=== PATIENT | female | born 1985 | race Caucasian/White ===

== ENCOUNTER 2017-08-27 12:13 | Emergency (ER) | payer BC, SELFPAY ==
[2017-08-27 12:14] VITALS: BP 121/72; PULSE 63; RESP 18; TEMP 36.6; O2SAT 100; BMI 21.4
--- NOTE | 2017-08-27 12:41 | CT_ITS ---
STUDY: CT BRAIN WITHOUT CONTRAST REASON FOR EXAM: Female, 32 years old. Trauma RADIATION DOSAGE (If Supplied By Facility): CTDIvol = ( 44.99 ) mGy, DLP = ( 745.49 ) mGycm TECHNIQUE: Transaxial CT imaging of the brain was performed without administration of intravenous contrast material. Sagittal and coronal reconstructed images are provided and reviewed. Individualized dose optimization techniques were used for this CT. COMPARISON: None. FINDINGS: Normal soft tissue structures. Normal calvarium. Normal size ventricles and extra-axial spaces for the patient's age. Normal white matter tracts of the cerebral hemispheres. Normal basal ganglia and thalami. Normal brainstem. Normal cerebellum. There is no intracranial hemorrhage. There are no findings of an acute ischemic infarction. Normal visualized paranasal sinuses. CT/Brain/Head without Contrast IMPRESSION: Normal unenhanced CT scan of the brain. Electronically Signed: Jonah Mcintyre DO at 13:24 EDT Tel , Service support ,
--- NOTE | 2017-08-27 12:45 | ED.DCSUM_ITS ---
- ER Visit Summary Date of Service: 08/27/17 Chief Complaint: Headache History of Present Illness: The patient is a 32 F with a headache for 2 days. This is a right sided headache. The patient says it is worse after a fall. She has felt off balance for about a week. She denies any vertigo symptoms. She denies any hearing changes. Denies any new medications. Denies fevers. Denies weakness or numbness. Denies visual or speech change. Denies trouble swallowing. Denies chest pain or shortness of breath. Denies abdominal pain. She does report nausea without vomiting. No diarrhea or symptoms. She is on her period now. Physical Examination: Vital signs unremarkable. Afebrile. No acute distress. Head atraumatic. Neck nontender. Cranial nerves grossly intact. HEENT exam unremarkable. Heart regular. Lungs clear. Extremities atraumatic. Normal strength, sensation, and cerebellar testing. Skin appears normal. Test Results: CT brain pending. Emergency Department Course and Treatment: Patient declined pain medications. CT head showed no acute abnormalities. On reassessment, the patient was feeling better. She was worried that she had an abnormal scan because of her history of IV drug abuse. She denies any history of hepatitis, bleeding, or HIV. Denies any other complaints. I advised her that further workup to rule out aneurysm or hemorrhage would require further imaging and/or even a lumbar puncture. The patient declined any further testing or workup. She voiced understanding. She will monitor for signs of infection like fever, rash, or neck stiffness. Will also monitor for increasing pain, photophobia, vomiting, weakness or numbness. Return for any new or worsening issues. Otherwise follow -up as an outpatient. Treatment Plan: As above Disposition: Discharged Impression: 1. Acute headache This note was generated with [employer] dictation software. It may contain incorrect words, spelling, and punctuation that were not noted in review of the chart prior to signing ED Disposition - Plan for ED Patient: Chief Complaint: Head Injury Referrals: Sherie Roland DO [Primary Care Provider] -
--- NOTE | 2017-08-27 15:10 | ED.DEP ---
ED Disposition - Plan for ED Patient: Chief Complaint: Head Injury Instructions: ED Head Injury Closed Referrals: Sherie Roland DO [Primary Care Provider] -
[2017-08-27 15:12] VITALS: BP 104/75; PULSE 65; RESP 16
== END 2017-08-27 15:14 | disposition home or self-care (01) ==
PROVIDERS: Emergency Provider Emergency Medicine; Family Provider Family Medicine; PCP Family Medicine
DX: R51 Headache (principal)
CPT/HCPCS: 70450; 99282

== ENCOUNTER → 2017-10-31 13:34 | Outpatient (CLI) | payer BC, SELFPAY ==
[2017-10-31 16:30] LABS: Follicle Stimulating Hormone 6.7 mIU/mL; Free T3 2.8 pg/mL (2.18-3.98); Prolactin 18.3 ng/mL; T4 Free Direct 0.91 ng/dL (0.76-1.46); Thyroid Stim Hormone (TSH) 1.61 uIU/mL (0.358-3.74)
[2017-11-13 13:25] LABS: HPV Reflexed? NOT INDICATED
== END ==
LOC: BFHLAB 13:35
PROVIDERS: Family Provider Family Medicine; PCP Family Medicine; Visit Provider Family Medicine
DX: E03.9 Hypothyroidism, unspecified (principal); N92.6 Irregular menstruation, unspecified; R87.810 Cervical high risk human papillomavirus (HPV) DNA test positive
CPT/HCPCS: 36415; 83001; 84146; 84439; 84443; 84481; 88175; G0145

== ENCOUNTER 2018-06-06 18:49 | Emergency (ER) | payer SELFPAY ==
[2018-06-06 18:50] VITALS: BP 119/75; PULSE 66; RESP 14; TEMP 36.8; O2SAT 100; BMI 19.9
--- NOTE | 2018-06-06 19:05 | CT_ITS ---
STUDY: CT BRAIN WITHOUT CONTRAST REASON FOR EXAM: Female, 33 years old. Headache. Patient woke up this morning with left facial numbness RADIATION DOSAGE (If Supplied By Facility): CTDIvol = ( 44.99 ) mGy, DLP = ( 745.49 ) mGycm TECHNIQUE: Transaxial CT imaging of the brain was performed without administration of intravenous contrast material. Individualized dose optimization techniques were used for this CT. COMPARISON: 08/27/2017 FINDINGS: Normal soft tissue structures. Normal calvarium. Normal size ventricles and extra-axial spaces for the patient's age. Normal white matter tracts of the cerebral hemispheres. Normal basal ganglia and thalami. Normal brainstem. Normal cerebellum. There is no intracranial hemorrhage. There are no findings of an acute ischemic infarction. There is mucoperiosteal inflammatory disease of the ethmoid sinuses consistent with mild chronic sinusitis. CT/Brain/Head without Contrast IMPRESSION: Normal unenhanced CT scan of the brain. Electronically Signed: Reggie Gray MD at 19:39 EST , Service support ,
--- NOTE | 2018-06-06 19:53 | ED.DCSUM_ITS ---
- ER Visit Summary Date of Service: 06/06/18 Chief Complaint: Facial weakness History of Present Illness: The patient is a 33 F who presents with left facial weakness that began this morning. Patient states when she attempted to put her lip croissant she was having difficulty puckering her lips. Patient states she was able to do it but it is slower on the left than on the right. Patient does admit to some paresthesias on the left side of her face. Patient denies any weakness of her upper or lower extremities. Patient does admit to some left ear pain. Patient admits to subjective fevers. Patient denies any headaches. Physical Examination: Vital signs are stable. Patient is afebrile. Patient is in no acute distress. Oral mucosa is pink and moist. Neck is supple. Trachea is midline. There is no JVD noted. Heart was regular rate and rhythm. Lungs are clear and equal bilateral. Abdomen is soft. Bowel sounds are normal. There is no tenderness. There is no guarding noted. Skin is warm dry. Cranial nerves II through XII are intact. I do not appreciate any weakness on the left side of her face. There are no focal motor or sensory deficits noted. The remaining physical exam is within normal limits. Test Results: CT scan of the brain was obtained. There is no acute intracranial abnormality. Emergency Department Course and Treatment: Patient will be treated as a early Almazan's palsy. Patient was given a prescription for a short course of prednisone. However the patient declined a prescription. Patient was instructed to follow-up with her primary care physician in 5-7 days. Patient understood and was agreeable with the plan. All questions were answered. Disposition: Discharge home Impression: Early Almazan's palsy This note was generated with [employer] dictation software. It may contain incorrect words, spelling, and punctuation that were not noted in review of the chart prior to signing ED Disposition - Plan for ED Patient: Disposition: Home or Assisted Living Chief Complaint: Numb/Ting Diagnosis: Almazan's palsy Instructions: ED [place] Palsy Prescriptions: predniSONE tablet 60 mg PO DAILY 5 Days #15 tab Referrals: Sherie Roland DO [Primary Care Provider] -
== END 2018-06-06 20:01 | disposition home or self-care (01) ==
PROVIDERS: Emergency Provider Emergency Medicine; Family Provider Family Medicine; PCP Family Medicine
DX: G51.0 Bell's palsy (principal)
CPT/HCPCS: 70450; 99282

== ENCOUNTER 2020-10-20 15:37 | Emergency (ER) | payer OTHER, SELFPAY ==
[2020-10-20 15:38] VITALS: BP 124/73; PULSE 89; RESP 16; TEMP 36.4; O2SAT 98; BMI 23.6
--- NOTE | 2020-10-20 15:58 | US_ITS ---
STUDY: SECOND AND THIRD TRIMESTER OBSTETRICAL ULTRASOUND - TWIN REASON FOR EXAM: Female, 35 years old. LMP: 06/08/2020. Left lower quadrant pain. Confirm viability. TECHNIQUE: Transabdominal TECHNICAL QUALITY: Adequate. COMPARISON: None. FINDINGS: There are two intrauterine fetuses. Two discrete placenta common consistent with a dichorionic . The placenta for baby A is anterior and grade 1 appearance. The placenta for baby B is low-lying with its 1.2 cm cervix. It is also grade 1. There is a normal amniotic fluid volume within each amniotic sac. The uterine wall is normal. There is a competent closed cervical os. The cervix measures 4.3 cm in length. Fetus A demonstrates cardiac activity with a heart rate of 169 bpm. Fetus B demonstrates cardiac activity with a heart rate of 185 bpm. Fetus B is in an oblique presentation with the head on the maternal right side. FETUS A BIOMETRY: BPD: 4.37 cm: 19 weeks, 1 days HC: 16.29 cm: 19 weeks, 0 days AC: 14.15 cm: 19 weeks, 3 days FL: 2.74 cm: 18 weeks, 2 days CI: FL/BPD: 62.72 FL/HC: FL/AC: 19.37 HC/AC: 1.15 age by current US: 18 weeks, 6 days. BREONNA by current US: 03/17/2021. Estimated weight: 271 grams, +/- 41 grams, 39 %. Age by LMP: 19 weeks, 1 days. BREONNA by LMP: 03/15/2021. FETUS B BIOMETRY: BPD: 4.24 cm: 18 weeks, 5 days HC: 16.61 cm: 20 weeks, 2 days AC: 12.97 cm: 18 weeks, 3 days FL: 2.73 cm: 18 weeks, 2 days CI: FL/BPD: 64.26 FL/HC: FL/AC: 21.01 HC/AC: 1.23 age by current US: 18 weeks, 4 days. BREONNA by current US: 03/19/2021. Estimated weight: 242 grams, +/- 36 grams, 15 %. Age by LMP: 19 weeks, 1 days. BREONNA by LMP: 03/15/2021. IMPRESSION: 1. Live dichorionic intrauterine twin . 2. Fetus a demonstrates a gestational age of 18 weeks, 6 days with an BREONNA of 03/17/2021. EFW is 271 g. Adequate amniotic fluid. Anterior grade 1 placenta. Breech presentation. 3. Fetus B demonstrates a gestational age of 18 weeks, 4 days with an BREONNA of 03/19/2021. EFW is 242 g. Adequate amniotic fluid. Posterior low-lying grade 1 placenta. Transverse lie with head to the maternal right Electronically Signed: Bruce Valdes DO at 17:38 EDT Tel [phone], Service support , STUDY: SECOND AND THIRD TRIMESTER OBSTETRICAL ULTRASOUND - TWIN REASON FOR EXAM: Female, 35 years old. LMP: 06/08/2020. Left lower quadrant pain. Confirm viability. TECHNIQUE: Transabdominal TECHNICAL QUALITY: Adequate. COMPARISON: None. FINDINGS: There are two intrauterine fetuses. Two discrete placenta common consistent with a dichorionic . The placenta for baby A is anterior and grade 1 appearance. The placenta for baby B is low-lying with its 1.2 cm cervix. It is also grade 1. There is a normal amniotic fluid volume within each amniotic sac. The uterine wall is normal. There is a competent closed cervical os. The cervix measures 4.3 cm in length. The bilateral adnexal regions are normal. Fetus A demonstrates cardiac activity with a heart rate of 169 bpm. Fetus ?A? is in a cephalic presentation. Fetus B demonstrates cardiac activity with a heart rate of 185 bpm. Fetus B is in an oblique presentation with the head on the maternal right side. FETUS A BIOMETRY: BPD: 4.37 cm: 19 weeks, 1 days HC: 16.29 cm: 19 weeks, 0 days AC: 14.15 cm: 19 weeks, 3 days FL: 2.74 cm: 18 weeks, 2 days CI: FL/BPD: 62.72 FL/HC: FL/AC: 19.37 HC/AC: 1.15 age by current US: 18 weeks, 6 days. BREONNA by current US: 03/17/2021. Estimated weight: 271 grams, +/- 41 grams, 39 %. Age by LMP: 19 weeks, 1 days. BREONNA by LMP: 03/15/2021. FETUS B BIOMETRY: BPD: 4.24 cm: 18 weeks, 5 days HC: 16.61 cm: 20 weeks, 2 days AC: 12.97 cm: 18 weeks, 3 days FL: 2.73 cm: 18 weeks, 2 days CI: FL/BPD: 64.26 FL/HC: FL/AC: 21.01 HC/AC: 1.23 age by current US: 18 weeks, 4 days. BREONNA by current US: 03/19/2021. Estimated weight: 242 grams, +/- 36 grams, 15 %. Age by LMP: 19 weeks, 1 days. BREONNA by LMP: 03/15/2021. US/OB Limited With Biometrics IMPRESSION: 1. Live dichorionic intrauterine twin . 2. Fetus a demonstrates a gestational age of 18 weeks, 6 days with an BREONNA of 03/17/2021. EFW is 271 g. Adequate amniotic fluid. Anterior grade 1 placenta. Breech presentation. 3. Fetus B demonstrates a gestational age of 18 weeks, 4 days with an BREONNA of 03/19/2021. EFW is 242 g. Adequate amniotic fluid. Posterior low-lying grade 1 placenta. Transverse lie with head to the maternal right Electronically Signed: Bruce Valdes DO at 17:38 EDT Tel [phone], Service support ,
--- NOTE | 2020-10-20 15:59 | EDS_ITS ---
HPI HPI - Female History of Present Illness Chief Complaint: Complaint Narrative Narrative: 34-year-old female with 3 previous pregnancies currently at 17 weeks gestation with twins. She has had confirmatory intrauterine . She sees her compensation coordinator. Patient states that she has had urinary symptoms. She does describe some urinary incontinence when she sneezes. Patient states that she has not experienced this with previous pregnancies. Patient denies fever, chills. She is eating and drinking normally. She making normal stool. She states that she has not felt the twins move since yesterday. PFSH PFSH Home Medications 10/20/20 [History Last Taken Unknown] Allergy/AdvReac Type Severity Reaction Status Date / Time acetaminophen Allergy Rash Verified 10/20/20 15:40 [From Tylenol-Codeine] codeine phosphate Allergy Rash Verified 10/20/20 15:40 [From Tylenol-Codeine] fentanyl AdvReac Other Verified 10/20/20 15:40 morphine AdvReac Rash Verified 10/20/20 15:40 propofol AdvReac Other Verified 10/20/20 15:40 Surgical History Hx of appendectomy Social History Smoking Status: Former smoker ROS ROS ED Constitutional Constitutional ED: Denies chills, fever(s) or sweats Eyes Eyes: Denies blurry vision or change in vision ENT ENT ED: Denies ear pain, rhinorrhea or sore throat Cardiovascular Cardiovascular: Denies chest pain, palpitations or racing heartbeat Respiratory/Chest Respiratory/Chest: Denies cough, dyspnea or sputum Gastrointestinal Gastrointestinal: Denies abdominal pain, constipation, diarrhea or vomiting Genitourinary Genitourinary ED: Reports dysuria and other Details: Mild suprapubic pressure, urinary incontinence. ; Denies hematuria or urinary frequency Musculoskeletal Musculoskeletal: Denies arthralgias, myalgias or neck pain Integumentary Denies abscess, Abrasions or rash Neurologic Neurologic: Denies headache(s), paresthesias or weakness Psychiatric Psychiatric: Denies anxiety, depression, suicidal ideation or suicidal thoughts Endocrine Endocrinology: Denies polydipsia or polyuria EXAM Physical Exam Const Vital Signs: 10/20/20 15:38 Temperature 97.5 F L Temperature Source Temporal Pulse Rate 89 Respiratory Rate 16 Blood Pressure 124/73 H Blood Pressure Mean 90 Pulse Ox 98 Oxygen Delivery Method Room Air General Appearance ED: Negative for pallor HEENT Reports normocephalic, head/scalp atraumatic and moist mucous membranes Eyes PERRL and EOMs intact bilaterally Chest Wall inspection of chest normal and palpation of chest normal Resp normal respiratory effort and clear to auscultation bilaterally Auscultation: Negative for rales, rhonchi or wheezes Cardio regular rate and regular rhythm GI normal to inspection, nondistended, normoactive bowel sounds and non-distended GI Narrative: Gravid. Mild suprapubic tenderness. Palpation: soft Narrative: Deferred Back/Spine no CVA tenderness General Back: Negative for CVA tenderness Cervical Spine: Negative for cervical spine tenderness Extremity normal to inspection General Extremety ED: Yes edema and tenderness General Extremity: edema Neuro oriented x3 and CN's II-XII intact bilaterally Sensorium / Orientation: alert Motor Exam: strength 5/5 throughout Psych mental status grossly normal Attitude: No agitated Skin no rashes or lesions noted and no wounds General Skin Exam: Negative for jaundice or pallor MDM MDM MDM Narrative Medical decision making narrative: Patient presents with mild pelvic pain concern for decreased movement and dysuria. She is also describing incontinence to me. Patient had lab work today which is unremarkable. Urinalysis is negative for infection. hCG is appropriate. She had transvaginal ultrasound which showed both fetuses to be appropriate with normal heart rates. Patient counseled follow-up with her DIRECTOR OF CASEWORK DEPARTMENT. I believe she stable for discharge at this time. Impression: 1. Abdominal pain in second trimester 2. Dysuria 3. Incontinence Lab Data Labs: Laboratory Results - last 24 hr 10/20/20 10/20/20 10/20/20 15:50 16:15 16:15 WBC 8.7 RBC 3.36 L Hgb 10.8 L Hct 32.0 L MCV 95.2 MCH 32.1 H MCHC 33.8 RDW Std Deviation 45.1 H RDW Coeff of Grayson 13.1 Plt Count 267 MPV 8.9 Immature Gran % (Auto) 0.600 Neut % (Auto) 81.6 H Lymph % (Auto) 9.4 L Ulster % (Auto) 6.5 Eos % (Auto) 1.7 Baso % (Auto) 0.2 Absolute Neuts (auto) 7.1 Absolute Lymphs (auto) 0.82 L Nucleated RBC % 0 Sodium 137 Potassium 3.3 L Chloride 107 Carbon Dioxide 23.0 Anion Gap 7 BUN 7 Creatinine 0.62 Estim Creat Clear Calc 111.45 Est GFR (MDRD) Af Amer 142 Est GFR (MDRD) Non-Af 117 BUN/Creatinine Ratio 11.3 Glucose 100 Calcium 8.3 L HCG, Quant Urine Color Yellow Urine Clarity Clear Urine pH 5.0 Ur Specific Happy 1.025 Urine Protein 15 H Urine Glucose (UA) Normal Urine Ketones Negative Urine Occult Blood Negative Urine Nitrite Negative Urine Bilirubin Negative Urine Urobilinogen Normal Ur Leukocyte Esterase Negative Urine RBC 0 SEEN Urine WBC 0 SEEN Ur Squamous Epith Cells 0-5 SEEN Urine Bacteria 0 SEEN Urine Mucus 0 SEEN 10/20/20 16:15 WBC RBC Hgb Hct MCV MCH MCHC RDW Std Deviation RDW Coeff of Grayson Plt Count MPV Immature Gran % (Auto) Neut % (Auto) Lymph % (Auto) Ulster % (Auto) Eos % (Auto) Baso % (Auto) Absolute Neuts (auto) Absolute Lymphs (auto) Nucleated RBC % Sodium Potassium Chloride Carbon Dioxide Anion Gap BUN Creatinine Estim Creat Clear Calc Est GFR (MDRD) Af Amer Est GFR (MDRD) Non-Af BUN/Creatinine Ratio Glucose Calcium HCG, Quant 43742 H Urine Color Urine Clarity Urine pH Ur Specific Happy Urine Protein Urine Glucose (UA) Urine Ketones Urine Occult Blood Urine Nitrite Urine Bilirubin Urine Urobilinogen Ur Leukocyte Esterase Urine RBC Urine WBC Ur Squamous Epith Cells Urine Bacteria Urine Mucus Radiography Diagnostic Testing: Radiology Impression Obstetrics Ultrasound 10/20/20 15:58 IMPRESSION: 1. Live dichorionic intrauterine twin . 2. Fetus a demonstrates a gestational age of 18 weeks, 6 days with an BREONNA of 03/17/2021. EFW is 271 g. Adequate amniotic fluid. Anterior grade 1 placenta. Breech presentation. 3. Fetus B demonstrates a gestational age of 18 weeks, 4 days with an BREONNA of 03/19/2021. EFW is 242 g. Adequate amniotic fluid. Posterior low-lying grade 1 placenta. Transverse lie with head to the maternal right Electronically Signed: Bruce Valdes DO at 17:38 EDT Tel [phone], Service support , ADDENDUM: 10/20/20 1745 IMPRESSION: 1. Live dichorionic intrauterine twin . 2. Fetus a demonstrates a gestational age of 18 weeks, 6 days with an BREONNA of 03/17/2021. EFW is 271 g. Adequate amniotic fluid. Anterior grade 1 placenta. Breech presentation. 3. Fetus B demonstrates a gestational age of 18 weeks, 4 days with an BREONNA of 03/19/2021. EFW is 242 g. Adequate amniotic fluid. Posterior low-lying grade 1 placenta. Transverse lie with head to the maternal right Electronically Signed: Bruce Valdes DO at 17:38 EDT Tel [phone], Service support , Discharge Plan Triage Chief Complaint: Complaint ED Provider: Derek Burnett Dx/Rx/DC Orders Instructions: Adapting to : Second Trimester Prescriptions: No Action RF: 0 Primary Care Provider: Sherie Roland Referrals: Sherie Roland DO [Primary Care Provider] - Disposition Disposition: Home, self care
[2020-10-20 16:22] LABS: Absolute Lymphocyte Count 0.82 X10^3/uL (0.83-4.51); Absolute Neutrophil Count 7.1 X10^3/uL (2.0-7.7); Basophil# 0.02 X10^3/uL; Basophil% 0.2 % (0-1); Eosinophil# 0.15 X10^3/uL; Eosinophils% 1.7 % (0-5); Hemoglobin 10.8 g/dL (12.0-15.0); Lymphocyte # 0.82 X10^3/ul (0.83-4.51); Lymphocyte % 9.4 % (19-41); Mean Corp Hgb Conc 33.8 g/dL (32-36); Mean Corpuscular Hgb 32.1 pg (27.0-32.0); Mean Corpuscular Volume 95.2 fL (81-99); Mean Platelet Vol. 8.9 fl (6.2-12.0); Monocyte# 0.57 X10^3/uL; Monocyte% 6.5 % (0-10); NRBC Flagged by Analyzer 0 % (0-5); Neutrophil # 7.12 X10^3/uL (2.7-7.7); Neutrophil % 81.6 % (47-70); Platelet Count 267 K/mm3 (150-450); RBC Distribution Width CV 13.1 % (11.6-14.6); RBC Distribution Width SD 45.1 fl (35.1-43.9); Red Blood Count 3.36 M/mm3 (4.2-5.4); White Blood Count 8.7 K/mm3 (4.4-11.0)
[2020-10-20 16:29] LABS: Bacteria 0 SEEN /hpf (None Seen); Mucous, Urine 0 SEEN /hpf (<or=2+); Red Blood Cells-Urine 0 SEEN /hpf (0-5); White Blood Cells 0 SEEN /hpf (0-5)
[2020-10-20 16:31] LABS: Color, Urine Yellow (Yellow); Glucose, Dipstick Normal (Normal); Ketone-Dipstick Negative (Negative); Leukocyte Esterase-Dipstick Negative /ul (Negative); Nitrite-Dipstick Negative (Negative); Occult Blood-Urine Negative /ul (Negative); Protein-Dipstick 15 mg/dl (Negative); Specific Gravity, Urine 1.025 (1.002-1.030); Urine Bilirubin Dipstick Negative (Negative); Urine Clarity Clear (Clear); Urine Urobilinogen Normal (Normal)
[2020-10-20 16:35] LABS: Anion Gap 7 (5-15); BUN 7 mg/dL (7-18); BUN/Creat Ratio 11.3 RATIO (10-20); Calcium,Total 8.3 mg/dL (8.5-10.1); Chloride 107 mmol/L (98-107); Creatinine, Serum 0.62 mg/dL (0.55-1.02); EST Glomerular Filtration Rate 117 mL/min (>60); Est Glom Filt Rate - Afr Amer 142 mL/min (>60); Estimated Creatinine Clearance 111.45 ml/min; Glucose 100 mg/dL (74-106); Potassium 3.3 mmol/L (3.5-5.1); Sodium Level 137 mmol/L (136-145)
[2020-10-20 16:41] LABS: Squamous Epithelial Cells - UA 0-5 SEEN /hpf (5-10)
[2020-10-20 17:00] LABS: hCG Titer Quant., Serum 12595 mIU/mL (1-3)
== END 2020-10-20 18:24 | disposition home or self-care (01) ==
PROVIDERS: Emergency Provider Student in an Organized Health Care Education/Training Program; PCP Family Medicine
DX: O26.892 Other specified pregnancy related conditions, second trimester (principal); R10.9 Unspecified abdominal pain; R30.0 Dysuria; R32 Unspecified urinary incontinence; Z3A.17 17 weeks gestation of pregnancy; Z87.891 Personal history of nicotine dependence
CPT/HCPCS: 76816; 80048; 81001; 84702; 85025; 99282; A4216

== ENCOUNTER 2021-01-29 03:40 | Inpatient (IN) | payer OTHER, SELFPAY ==
[2021-01-29] VITALS (18 sets, daily range): BP systolic 101–132; BP diastolic 64–80; PULSE 64–97; RESP 16–18; TEMP 36.1–36.8; O2SAT 97–100; BMI 25.0
[2021-01-29] MEDS: Lactated Ringers 1,000 ML 999 ML IV (03:40)
[2021-01-29] MEDS: Betamethasone/Betamethasone 30 MG/5 ML Vial 12 MG IM (04:07)
--- NOTE | 2021-01-29 04:11 | HP.PCM.OB_ITS ---
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 Denies headache, visual change, chest pain, shortness of breath, nausea vomiting, right upper quadrant pain. Patient states good movement. Obstetric history: G1-4: term 's, uncomplicated. Baby is healthy at home G5: Current Past medical history: None Locations: None Past surgical history: Appendectomy, left finger surgery Allergies: Morphine (headache) Social history: Denies smoking, alcohol use, drug use Family history: Denies DVT or PE Review of systems: Besides above pertinent positives a full review of systems was performed and found to be negative Physical exam: Vitals: Blood pressure 124/80 pulse 73 temp 97.6 General: Normal-appearing no acute distress HEENT: Normocephalic atraumatic no cervical of adenopathy Cardiac/respiratory: No use of accessory muscles nonlabored breathing Abdomen: Gravid Pelvic: Bedside ultrasound with twin unknown chronicity. Positions baby A oblique maternal right, baby B transverse maternal left Extremities: No peripheral edema normal peripheral pulses Psych: Normal affect normal demeanor nonpressured speech Labs: White blood cell 8.8 hemoglobin 11.3 hematocrit 34.7% platelets 316 Assessment plan: 35-year-old G5, P4 based on history and bedside ultrasound appears to be 33 wee ks and 4 days with twins of unknown chorionicity in labor with unstable lie's and transverse presentation of baby B. Educated patient on findings for primary section for unstable lie and transverse lie. Risk benefits alternatives discussed. Patient states understanding wish to proceed. Give Celestone now. Labs sent. Anesthesia to see. now
[2021-01-29 04:14] LABS: Absolute Lymphocyte Count 1.18 X10^3/uL (0.83-4.51); Absolute Neutrophil Count 6.8 X10^3/uL (2.0-7.7); Basophil# 0.01 X10^3/uL; Basophil% 0.1 % (0-1); Eosinophil# 0.14 X10^3/uL; Eosinophils% 1.6 % (0-5); Hematocrit 34.7 % (37-47); Hemoglobin 11.3 g/dL (12.0-15.0); Lymphocyte # 1.18 X10^3/ul (0.83-4.51); Lymphocyte % 13.5 % (19-41); Mean Corp Hgb Conc 32.6 g/dL (32-36); Mean Corpuscular Hgb 28.5 pg (27.0-32.0); Mean Corpuscular Volume 87.4 fL (81-99); Mean Platelet Vol. 9.4 fl (6.2-12.0); Monocyte# 0.53 X10^3/uL; Monocyte% 6.1 % (0-10); NRBC Flagged by Analyzer 0 % (0-5); Neutrophil # 6.83 X10^3/uL (2.7-7.7); Platelet Count 316 K/mm3 (150-450); RBC Distribution Width CV 13.9 % (11.6-14.6); RBC Distribution Width SD 43.9 fl (35.1-43.9); Red Blood Count 3.97 M/mm3 (4.2-5.4); White Blood Count 8.8 K/mm3 (4.4-11.0)
[2021-01-29] MEDS: Sodium Citrate/Citric Acid 30 ML UDC PO (04:25)
[2021-01-29] MEDS: Cefazolin 2 GM in 0.9% Normal Saline 100 ML IV (04:30)
[2021-01-29 05:25] LABS: Group B Strep DNA By PCR POSITIVE (Negative); Probe Check PASS
--- NOTE | 2021-01-29 05:43 | EX.PCM.OBRPT ---
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 Baby B transverse spine down head maternal left delivered in standard breech, Apgars per apparel stock checker. Normal uterus, tubes, and ovaries. Consent: Patient arrived to [facility] after being seen by display mechanic per patient to be 33 weeks and 4 days based on early ultrasound arrived in labor baby A and oblique/transverse presentation and baby B in transverse presentation in need of primary section. Patient understands the risk of the procedure include but are not limited to visceral or vascular injury, prolonged hospitalization, blood loss and need for transfusion, reoperation. Patient stated understanding and wished to proceed. All questions were answered and consent was signed. Procedure: Patient was brought back to the OR where spinal anesthesia found to be adequate. 2 g of Ancef and 500 mg of azithromycin were given for infection prophylaxis. Patient was prepared and draped in a supine position with leftward tilt. A Pfannenstiel incision was made at the skin with a scalpel. The incision was carried down to the fascia with a scalpel. The fascia was excised and extended laterally. Inferior aspect of the fascia was grasped and rectus and pyramidalis muscle were dissected off sharply with Nguyen scissors. In a similar aspect the superior aspect of the fascia was grasped and the underlying rectus muscle was dissected off sharply. Rectus muscle was dissected at the midline down to the level of the pubic symphysis. Preperitoneal fatty tissue was noted and peritoneum was entered bluntly. Peritoneum was extended superiorly and inferiorly with good visualization of bladder. Bladder blade was inserted and vesicouterine peritoneum was identified. Low transverse hysterotomy was made. Anterior placenta was noted, Allis clamp used to rupture membranes clear fluid noted x2. Hand was placed into the hysterotomy baby A was delivered in standard cephalic fashion with bladder blade being removed and baby A was delivered through the hysterotomy cephalic. Baby B with palpation of transverse head maternal left spine up, Allis clamp used to rupture membranes clear fluid noted. Baby B was delivered in standard breech fashion. Each placenta was marked, placenta was delivered via cord traction and fundal massage. IV oxytocin was initiated to facilitate uterine contractions. Uterus was exteriorized and wiped out with a dry laparotomy sponge in order to remove remaining placental membranes. Uterus was closed in continuous running fashion. Second layer was performed. Good hemostasis was noted. Uterus was placed back in the abdominal cavity and reinspected. Good hemostasis was noted. Rectus muscle and peritoneum were reapproximated with horizontal mattress sutures. Fascia was closed in a continuous running fashion. Skin was closed in a subcuticular fashion. All counts correct x2. Patient tolerated the procedure well was brought to recovery in stable condition.
[2021-01-29 05:55] LABS: HIV - WCH Non-Reactive (Nonreactive); Hepatitis B Surface Antigen Non-Reactive (Nonreactive); Hepatitis C Antibody Non-Reactive (Nonreactive)
[2021-01-29] MEDS: Oxytocin 30 units/NS 500 ml 30 UNITS/500 ML IV.SOLN 167 UNITS IV (06:18)
[2021-01-29] MEDS: Acetaminophen 500 MG Tablet 1000 MG PO ×3 (06:31→18:41)
[2021-01-29] MEDS: HYDROmorphone 1 MG/ML Syringe IV ×6 (06:42→21:10)
[2021-01-29 08:32] LABS: Amphetamine Urine VISTA NEGATIVE (<1000 ng/mL); Barbiturate Urine VISTA NEGATIVE (< 200 ng/mL); Benzodiazepine Urine VISTA NEGATIVE (< 200 ng/mL); Cocaine Urine VISTA NEGATIVE (< 300 ng/mL); Ecstacy Urine VISTA NEGATIVE (< 500 ng/mL); Methadone Urine VISTA NEGATIVE (< 300 ng/mL); PCP Urine VISTA NEGATIVE (< 25 ng/mL); THC Urine VISTA NEGATIVE (< 50 ng/mL); Vista UDS pH Range 7
--- NOTE | 2021-01-29 09:22 | NURSING ---
Complaining of pain 10 on 0-10 scale. Stating I just had a c section and you guys are withholding pain medicine and treating me like a drug addict. Offered Toradol, patient refusing, offered oxy ir, patient refusing. Dr. Lobo Juarez's office called and message left with nurse with this information and to have Dr. Juarez call this nurse.
[2021-01-29 09:55] LABS: Rubella IgG Reactive (Nonreactive); Syphilis Antibodies Non-reactive
[2021-01-29] MEDS: 0.9% Saline Lock 10 ML Syringe IV ×5 (11:03→21:10)
[2021-01-29] MEDS: Ibuprofen 600 MG Tablet PO ×2 (12:13→20:48)
[2021-01-29] MEDS: Ondansetron 4 MG/2 ML Vial IV (13:08)
[2021-01-29] MEDS: proCHLORPERazine 10 MG/2 ML Vial IV (14:15)
--- NOTE | 2021-01-29 21:27 | NURSING ---
Pt. up for first time on day shift, but it was not charted by previous nurse. Pt. up for this RN and tolerated well. Still needs to void.
--- NOTE | 2021-01-29 23:44 | NURSING ---
[id number]- This RN in room to give pt. Dilaudid per request for pain rated 7 out of 10. Upon trying to flush IV, this RN noted that IV was no longer intact and catheter was no longer in vein. IV discontinued but pt. requesting new IV start so that she could receive the Dilaudid. IV attempt x2, both blown. Pt. requests this RN not try anymore and for charge nurse to come into room because she states I'm just frustrated and in pain and need the medication. Pt. requests RN start IV in left AC where old IV just was discontinued, and this RN explained why new IV could not be started there. Pt. verbalized that she is frustrated and wants this RN to leave and send someone else in.
--- NOTE | 2021-01-29 23:55 | NURSING ---
this RN at bedside to restart IV per patient request; discussed with patient the effects of IV pain medication vs PO pain medication and that after 24 hours IV pain medication will no longer be an option and it would be beneficial to start alternating PO and IV at this time, patient verbalized understanding but does not want PO medication at this time d/t her drug history and understands that at 24 hours post delivery that IV pain medication will not be an option; this RN also suggested that RN could obtain order from Dr for different medication other than Oxyir but patient refused.
[2021-01-30] MEDS: 0.9% Saline Lock 10 ML Syringe IV ×3 (00:04→04:57)
[2021-01-30] MEDS: HYDROmorphone 1 MG/ML Syringe IV ×3 (00:04→04:58)
--- NOTE | 2021-01-30 00:28 | NURSING ---
0000- Natalie Pate, charge out clerk restarted IV for pt. This RN previously pulled dilaudid out for pt. before the initial one blew and attempt x2 missed, so Natalie Pate RN administered the Dilaudid dose that this RN pulled out of accudose.
[2021-01-30] MEDS: Acetaminophen 500 MG Tablet 1000 MG PO ×2 (00:32→08:08)
[2021-01-30 00:44] VITALS: BP 111/72; PULSE 70; RESP 14; TEMP 36.6; O2SAT 97
[2021-01-30] MEDS: Ibuprofen 600 MG Tablet PO ×2 (02:28→12:41)
[2021-01-30 05:08] VITALS: BP 102/68; PULSE 70; RESP 16; TEMP 36.7; O2SAT 96
[2021-01-30 07:29] LABS: Hematocrit 30.1 % (37-47); Hemoglobin 9.8 g/dL (12.0-15.0); Mean Corp Hgb Conc 32.6 g/dL (32-36); Mean Corpuscular Hgb 28.3 pg (27.0-32.0); Mean Platelet Vol. 9.2 fl (6.2-12.0); Platelet Count 316 K/mm3 (150-450); RBC Distribution Width CV 13.7 % (11.6-14.6); RBC Distribution Width SD 42.5 fl (35.1-43.9); Red Blood Count 3.46 M/mm3 (4.2-5.4)
[2021-01-30 08:00] VITALS: BP 104/63; PULSE 70; RESP 18; TEMP 36.4; O2SAT 99
--- NOTE | 2021-01-30 08:08 | PCM.PN.OB ---
Subjective Subjective Patient with improved pain control, overall well controlled. No overnight complaints Objective Data Objective Data Vital Signs: Vital Signs Temp Pulse Resp BP Pulse Ox 98.0 F 70 16 102/68 96 01/30/21 05:08 01/30/21 05:08 01/30/21 05:08 01/30/21 05:08 01/30/21 05:08 Oxygen Delivery Method Room Air Weight: 150 lb Body Mass Index (BMI) 25.0 Intake & Output: Intake and Output for Last 24 Hours 01/28/21 01/29/21 01/30/21 23:59 23:59 23:59 Intake Total 1969 / 1969 Output Total 3550 / 3550 300 / 300 Balance -1580 / -1580 -300 / -300 Lab / Micro Data Result Diagrams: 01/30/21 07:23 Labs: Laboratory Results - last 24 hr 01/29/21 03:40: Syphilis Total Ab Non-reactive, Rubella IgG Antibody Reactive 01/29/21 05:00: Urine Opiates Screen NEGATIVE, Urine Methadone Screen NEGATIVE, Ur Barbiturates Screen NEGATIVE, Ur Phencyclidine Scrn NEGATIVE, Ur Amphetamines Screen NEGATIVE, U Methamphetamin-MDMA NEGATIVE, U Benzodiazepines Scrn NEGATIVE, Urine Cocaine Screen NEGATIVE, U Cannabinoids Screen NEGATIVE, Ur Drug Screen Comment 01/30/21 07:23: WBC 16.0 H, RBC 3.46 L, Hgb 9.8 L, Hct 30.1 L, MCV 87.0, MCH 28.3, MCHC 32.6, RDW Std Deviation 42.5, RDW Coeff of Grayson 13.7, Plt Count 316, MPV 9.2 Micro: Microbiology 01/29/21 04:00 Nasal Secretion SARS-CoV-2 Antigen (Rapid) - Final Physical Exam Const alert, oriented x3, no apparent distress, average body habitus, healthy appearing and well nourished HEENT normocephalic and moist oral mucous membranes Head and Scalp: atraumatic Face and Sinus: normal facial exam Neck full ROM Resp normal respiratory effort, no retractions and no use of accessory muscles GI normal to inspection, nondistended, normoactive bowel sounds GI Narrative: Bandage clean dry and intact Extremity normal to inspection, full ROM and no clubbing, cyanosis or edema Psych mental status grossly normal, affect normal, speech normal and activity/motor behavior normal Assessment & Plan (1) delivery delivered: PLAN: Postoperative day 1 status post primary section at 32 weeks for di-ditwins with transverse lie. Patient was very specific pain medication she desires risk benefits alternatives discussed, desires Vicodin home-going as opposed to oxycodone. To continue current management. Babies are at [facility]. Likely discharge home tomorrow
[2021-01-30] MEDS: Senna/Docusate Sodium 1 Tablet PO (09:38)
[2021-01-30] MEDS: oxyCODONE 5 MG Tablet PO ×4 (09:38→22:52)
[2021-01-30 13:59] LABS: Chlamydia Trachomatis by PCR Negative (Negative); Neisserai gonorrhoeae by PCR Negative (Negative); Probe Check PASS; Sample Adequacy Control PASS; Specimen Processing Control PASS
[2021-01-30 14:23] VITALS: BP 105/67; PULSE 80; RESP 16; TEMP 37.1; O2SAT 96
--- NOTE | 2021-01-30 16:50 | CASEMGMT ---
Social Work Assessment Labor and Delivery Unit Patient Address: [address], [place] [address] Phone number: [phone] Date of Referral: 01/29/2021 Time of Referral: 731 Referred By: Dr. Lobo Juarez Date of Intervention: 01/30/2021 Time of Intervention: 165 Reason for Referral: Maternal history of substance use, heroin, last use 5 years ago; twin babies transferred to [facility] History obtained from: Medical records and mother of baby (MOB) Brit Mcclure Household composition: MOB reports to live with the father of baby's (FOB) Kiran Brown. MOB is 2 older children live in the home part-time. Home situation is reported to safe and adequate. Patient's parent/guardian status: MOB is a 35-year-old single female, involved with the FOB for over 1 year now. MOB denies any type of abuse, control, or intimidation in this relationship. Both MOB and FOB have children from prior relationships, with the twin babies being the first for the parents together. Minor children include: Gretchen, age 12, his father lives next door to the MOB. This minor spends time at both parents houses. MOB was with this father for 16 years. Filipe, age 9, spends time between the MOB house ([id number] other weekend) and the father's house in [place]. MOB delivered a daughter in 2013, making an adoption plan for this child. Baby A, Sunny Brown, born 01/29/2021, FOB Kiran Brown. Baby B, Bruce Brown, born 01/29/2021, FOB Kiran Brown. FOB has a 6-year-old daughter named Kayce. Not currently involved. Medical History: DANIEL is 4, para 3 now 5 after delivering Sunny and Bruce. care questionable. There are no care records on file at [facility]. This hand sign writer received report that MOB saw the submersible pilot 1 time. MOB reports to this hand sign writer seeing a submersible pilot by the name of Brenda Ayala at [facility] midwifery throughout the . MOB reports she was going to establish care with Dr. Summers in [place], in case a hospital delivery was needed due to twin gestation. MOB reports she chose [place] due to feeling this was a more holistic area of her breast-feeding. MOB reports the submersible pilot records are at the physician's office in [place]. DANIEL then delivered at [facility] at 33 weeks via section. This was MOB first delivery. Philip delivered weighing 4 pounds 9 ounces. Apgars 6-9-10 at 1-5-10 minutes of life respectively. Baby delivered weighing 4 pounds 1 ounces. Apgars 2-6-7 at 1-5-10 minutes of life respectively. Both babies transferred to [facility] due to respiratory distress issues and prematurity. Educational Status: MOB reports to a graduated high school and to have some college classes. No issues with reading, writing, or learning comprehension. Financial Status: MOB reports to work at [employer] full-time. 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 Supplies: MOB reports that have 2 car seats, breast pump, a stroller, a cradle, clothing, diapers, wipes. Reports plan to get a crib this week. Childcare/Caregiver(s): MOB will be the primary caregiver, along with the FOB. Transportation: Reports to have a hazmat tanker driver's license in the car. Programs/Agencies Involved: Denies any agency involvement. Reports to this hand sign writer that does not want the baby is connected through the system. Children Services/Legal Issues: No reported legal issues. MOB endorses history with [facility] children services related to MOB history of substance use. MOB endorses children being placed out of the home, and working on reunification which occurred about 5 years ago. MOB reports she moved to [facility] shortly after. MOB reports the adoption plan for the baby girl was made during the time that DANIEL was trying to work on reunification with her sons. Behavioral Health Issues: Mental Health History: MOB endorses history of depression and anxiety. Denies history of suicidal or homicidal ideation, intent or attempts. Reports a history of going to the counseling center at [facility] for anxiety and addressing childhood issues. Reports she graduated from the counseling center and her anxiety. Reports this episode of treatment was between 2016 and 2017 after the MOB overdosed on heroin. 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 Reports sobriety for the last 5 years, with a sober date of 12/13/2015. Reports after the overdose the MOB had an out of body spiritual experience where the MOB felt the Lord pulling the addiction out of the MOB body. MOB reports that prior to this out of body experience was on various medication assisted treatment programs. MOB reports after being saved, was able to walk away from substances completely. Has attended 12-step meetings intermittently in the past, but not in the last year or so due to Covid. Reports history of marijuana and cocaine use as a teenager. History of alcohol use but denies any use during . MOB is a former tobacco smoker as well. Drug Screens: Maternal drug screen negative at delivery on 01/29/2021. Per Sunny's records a urine drug screen was obtained and this was negative. Family/Social Stressors: Unplanned but accepted . Premature delivery with baby is being transferred to [facility]. Questionable care. Maternal history of substance use, reporting sobriety for 5 years. section delivery, which is the first for the MOB, and now causing MOB some pain issues. MOB reports believe that her pain tolerance to narcotics is high or due to history of addiction, although MOB reports a 5-year sobriety history. Support Systems: MOB endorses the FOB, [id number], and the MOB mother is a support system. MOB reports to have 3 friends at work whom she could rely on. Depression/Shaken Baby/Safe Sleeping: And will be provided with education on shaken baby prevention, safe sleeping, and mood and anxiety disorders. ASSESSMENT: Met with the MOB, introducing to self and social work role. MOB pleasant and cooperative with this hand sign writer. MOB conversation with a positive focused outlook. MOB did endorse history of addiction, getting saved and walking away from addiction. MOB held appropriate eye contact. MOB voiced that she would like to leave the hospital and go see her baby niece. Reports to also miss her other children. MOB did present as paranoid or suspicious as evidenced by asking this hand sign writer whether the MOB's hospital issued mobile phone was a recording device. When MOB asked to this hand sign writer this question, the MOB affect constricted and became more tense looking. MOB voiced comments about not being able to be future with the state of the country right now. MOB also made comments about not wanting to have the baby is connected through the system or any type of government help. MOB does endorse having supplies for the baby's. Uncertain whether the MOB only has 1 sleep space at this point or 2. However does have some time to procure before the baby is will be discharged home. Addressed with MOB whether MOB has any concerns about pain control in the hospital, and how this could translate with and will be going home with narcotics. MOB voiced that she has no concerns regarding pain control or history of addiction. Reports is only taking medications now as needed and when needed. Reports that has specifically asked for prescription of Vicodin rather than oxycodone, reporting believe that Vicodin has a lesser level of opiates than oxycodone. Note, this hand sign writer has received reports from nursing staff that the MOB has been insistent on IV pain meds, and has been resistive to normal protocols for pain control which do include ibuprofen and Tylenol. MOB declined referrals to help me grow or early Headstart. Again mentioned that did not want the baby is connected to the system. MOB receptive to this hand sign writer returning to bring a thermometer for the baby's as well as some resource information for the community. The father of baby entered the room near the end of conversation, just returning from a reported visit to [facility] delivering breastmilk. FOB reported the baby's are breathing better and off of the apparatuses. FOB is eye contact with this hand sign writer minimal to normal. Quiet demeanor. MOB did introduce the father of baby to this hand sign writer, smiling and telling this hand sign writer is the hospital vp digital marketing social media and crm. Safe Plan of Care for related to substance use: MOB reports sobriety of substances since 12/13/2015. Reports plan to only use prescription narcotics as prescribed and when needed. This hand sign writer did let MOB know that this hand sign writer will give handoff report to the [facility] NICU vp digital marketing social media and crm, as social work will have to follow-up at main campus as well. MOB acknowledged agreement, and made a comment that you people do that now. PLAN: Social work will continue to follow and plan to see MOB on 01/31/2021 for provision of resources. No other services requested or indicated. -JENNIFER Cisneros, EDITA *This note was generated with [employer] software. It may contain incorrect words, spelling, and punctuation that were not noted in review of the chart prior to signing*
[2021-01-30 20:40] VITALS: BP 114/60; PULSE 70; RESP 18; TEMP 36.8
[2021-01-31 03:04] VITALS: BP 100/48; PULSE 76; RESP 16
[2021-01-31] MEDS: oxyCODONE 5 MG Tablet PO (03:08)
--- NOTE | 2021-01-31 04:12 | NURSING ---
0405: Pt has episode of emesis on floor x1, refusing meds for nausea at this time. Pt refusing assessment and states she doesn't want to be bothered at this time. Informed patient that this RN would be back to check on her and to call if she needed anything. Will continue to monitor.
[2021-01-31] MEDS: Acetaminophen 500 MG Tablet 1000 MG PO ×3 (09:15→20:42)
[2021-01-31] MEDS: Ibuprofen 600 MG Tablet PO ×3 (09:15→20:41)
--- NOTE | 2021-01-31 09:17 | PN.OBGYN_ITS ---
Subjective Subjective Reports severe abdominal pain. She believes it is from gas and noted improvement temporarily when she passed gas before. Denies nausea, vomiting. Thought she may have had a fever overnight, but denies this morning. Denies heavy lochia. No bowel movement yet. Denies pain around her incision. Objective Data Objective Data Vital Signs: Vital Signs Temp Pulse Resp BP Pulse Ox 97.4 F L 69 16 103/59 L 97 01/31/21 14:11 01/31/21 14:11 01/31/21 14:11 01/31/21 14:11 01/31/21 09:29 Oxygen Delivery Method Room Air Weight: 68.039 kg Body Mass Index (BMI) 25.0 Intake & Output: Intake and Output for Last 24 Hours 01/29/21 01/30/21 01/31/21 23:59 23:59 23:59 Intake Total 1969 / 1969 Output Total 3550 / 3550 300 / 300 Balance -1580 / -1580 -300 / -300 Lab / Micro Data Result Diagrams: 01/31/21 10:00 Labs: Laboratory Results - last 24 hr 01/29/21 04:00: Specimen Comment Not Reportable 01/31/21 10:00: WBC 15.8 H, RBC 4.15 L, Hgb 11.7 L, Hct 37.0, MCV 89.2, MCH 28.2, MCHC 31.6 L, RDW Std Deviation 46.1 H, RDW Coeff of Grayson 14.2, Plt Count 382, MPV 9.2, Immature Gran % (Auto) 0.800, Neut % (Auto) 92.2 H, Lymph % (Auto) 4.2 L, Armstrong % (Auto) 2.7, Eos % (Auto) 0.0, Baso % (Auto) 0.1, Absolute Neuts (auto) 14.6 H, Absolute Lymphs (auto) 0.66 L, Nucleated RBC % 0 Micro: Microbiology 01/29/21 04:00 Nasal Secretion SARS-CoV-2 Antigen (Rapid) - Final Physical Exam Narrative patient curled up, appears uncomfortable Const alert, oriented x3 and no apparent distress Resp normal respiratory effort, normal air movement and clear to auscultation bilaterally Cardio regular rate, regular rhythm, S1 normal heart sound and S2 normal heart sound GI normal to inspection, nondistended, normoactive bowel sounds, soft to palpation, non-tender and non-distended GI Narrative: incisional dressing c/d/i Manual OB Exam: other lochia scant Uterus Palpation: uterus fundus firm Extremity no calf tenderness Assessment & Plan (1) delivery delivered: PLAN: POD#2 s/p PLTCS -B positive, Rubella immune -Formula and -Routine postop care -Exam unremarkable and vitals stable, reviewed findings with pt - likely gas pain. Ibuprofen, Tylenol given -advised to continue medications when due and limit opioids, ambulate, continue Simethicone
[2021-01-31 09:29] VITALS: BP 107/69; PULSE 87; RESP 18; TEMP 36.9; O2SAT 97
--- NOTE | 2021-01-31 10:00 | NURSING ---
Pt ambulated to BR, cussing and moaning during ambulation and while sitting on toilet. Pt was able to void and stated that gave some relief to her abdominal pain. Abdominal binder applied and patient states that it helped some. Mylicon given for gas and warm chicken broth provided. Pt sitting on couch at the moment. Encouraged patient to ambulate today to help get her bowels moving. Pt verbalized understanding.
[2021-01-31 10:41] LABS: Absolute Lymphocyte Count 0.66 X10^3/uL (0.83-4.51); Absolute Neutrophil Count 14.6 X10^3/uL (2.0-7.7); Basophil# 0.02 X10^3/uL; Basophil% 0.1 % (0-1); Hemoglobin 11.7 g/dL (12.0-15.0); Lymphocyte # 0.66 X10^3/ul (0.83-4.51); Lymphocyte % 4.2 % (19-41); Mean Corp Hgb Conc 31.6 g/dL (32-36); Mean Corpuscular Hgb 28.2 pg (27.0-32.0); Mean Corpuscular Volume 89.2 fL (81-99); Mean Platelet Vol. 9.2 fl (6.2-12.0); Monocyte# 0.42 X10^3/uL; Monocyte% 2.7 % (0-10); NRBC Flagged by Analyzer 0 % (0-5); Neutrophil # 14.61 X10^3/uL (2.7-7.7); Neutrophil % 92.2 % (47-70); Platelet Count 382 K/mm3 (150-450); RBC Distribution Width CV 14.2 % (11.6-14.6); RBC Distribution Width SD 46.1 fl (35.1-43.9); Red Blood Count 4.15 M/mm3 (4.2-5.4); White Blood Count 15.8 K/mm3 (4.4-11.0)
[2021-01-31] MEDS: Senna/Docusate Sodium 1 Tablet PO (12:05)
[2021-01-31 14:11] VITALS: BP 103/59; PULSE 69; RESP 16; TEMP 36.3
[2021-01-31 20:43] VITALS: BP 108/61; PULSE 72; RESP 18; TEMP 36.1
[2021-02-01 03:02] VITALS: BP 104/65; PULSE 72; RESP 18
[2021-02-01] MEDS: Ibuprofen 600 MG Tablet PO ×2 (03:04→09:20)
[2021-02-01] MEDS: Acetaminophen 500 MG Tablet 1000 MG PO ×2 (03:04→09:21)
[2021-02-01] MEDS: Senna/Docusate Sodium 1 Tablet PO (09:21)
--- NOTE | 2021-02-01 09:25 | DS.PCM_ITS ---
Discharge Summary Date of Admission: 01/29/21 Date of Discharge: 02/01/21 Summary: Patient arrived on 01/29/2021 in labor with twins with transverse presentation in need of primary section. Primary section performed, baby's sent to [facility] by care team assistant. Based on drug allergies Duramorph held and pain control originally by oxycodone by [place]. Otherwise uneventful recovery. Patient discharged home on 02/01/2021. Physical Exam Const alert, oriented x3, no apparent distress, average body habitus, no limitations, healthy appearing and well nourished HEENT normocephalic Neck full ROM Resp normal respiratory effort, normal air movement, no retractions and no use of accessory muscles GI normal to inspection, nondistended, normoactive bowel sounds GI Narrative: Bandage clean dry and intact Extremity normal to inspection, full ROM and normal capillary refill Skin no rashes or lesions noted Psych mental status grossly normal, thought process normal, cooperative, affect normal and speech normal Meaningful Use Info Meaningful Use Diagnoses (Choose all that apply): None applicable Discharge Plan Admission Admit Date/Time: 01/29/21 03:40 Primary Reason for Your Visit: Labor Attending Provider: Lobo Juarez Primary Care Provider: Sherie Roland Instructions Additional Instructions / Restrictions: No lifting over 25 pounds for 2 to 3 weeks. Regular diet. May shower, no tub baths for 2 weeks. No intercourse for 4 to 6 weeks. Please call if fever 101, chest pain, shortness of breath. Follow-up postoperatively in 2 weeks, 4 to 6 weeks Discharge Orders/Prescriptions Prescriptions: New ibuprofen 600 mg Tablet 600 mg PO Q6H Qty: 90 RF: 1 oxycodone 5 mg Tablet 5 mg PO Q6H PRN (Reason: pain (scale score 7-10)) 4 Days Qty: 16 RF: 0 Continued RF: 0 Referrals / Follow Up: Sherie Roland DO [Primary Care Provider] - Disposition Disposition (needs filled in before D/C Order can be placed): Home, Self Care
[2021-02-01 09:26] VITALS: BP 109/63; PULSE 83; RESP 12; TEMP 36.4
--- NOTE | 2021-02-01 09:28 | PCM.PN.OB ---
Subjective Subjective No overnight complaints. Pain well controlled. Objective Data Objective Data Vital Signs: Vital Signs Temp Pulse Resp BP Pulse Ox 97 F L 72 18 104/65 97 01/31/21 20:43 02/01/21 03:02 02/01/21 03:02 02/01/21 03:02 01/31/21 09:29 Oxygen Delivery Method Room Air Weight: 150 lb Body Mass Index (BMI) 25.0 Intake & Output: Intake and Output for Last 24 Hours 01/30/21 01/31/21 02/01/21 23:59 23:59 23:59 Output Total 300 / 300 Balance -300 / -300 Lab / Micro Data Result Diagrams: 01/31/21 10:00 Labs: Laboratory Results - last 24 hr 01/31/21 10:00: WBC 15.8 H, RBC 4.15 L, Hgb 11.7 L, Hct 37.0, MCV 89.2, MCH 28.2, MCHC 31.6 L, RDW Std Deviation 46.1 H, RDW Coeff of Grayson 14.2, Plt Count 382, MPV 9.2, Immature Gran % (Auto) 0.800, Neut % (Auto) 92.2 H, Lymph % (Auto) 4.2 L, [place] % (Auto) 2.7, Eos % (Auto) 0.0, Baso % (Auto) 0.1, Absolute Neuts (auto) 14.6 H, Absolute Lymphs (auto) 0.66 L, Nucleated RBC % 0 Micro: Microbiology 01/29/21 04:00 Nasal Secretion SARS-CoV-2 Antigen (Rapid) - Final Physical Exam Const alert, oriented x3, no apparent distress, average body habitus, healthy appearing and well nourished Exam Limitations: no limitations HEENT normocephalic and moist oral mucous membranes Head and Scalp: atraumatic Face and Sinus: normal facial exam Neck full ROM Resp normal respiratory effort, no retractions and no use of accessory muscles GI normal to inspection, nondistended, normoactive bowel sounds GI Narrative: Bandage clean dry and intact Extremity normal to inspection, full ROM and no clubbing, cyanosis or edema Skin no rashes or lesions noted Psych mental status grossly normal, affect normal, speech normal and activity/motor behavior normal Assessment & Plan (1) delivery delivered: PLAN: Postoperative day 3 status post primary section for twin with transverse presentation. Pain now well controlled. Breast-feeding. Twins at [facility] Okay to discharge home today
== END 2021-02-01 11:15 | disposition home or self-care (01) | DRG 788 ==
LOC: WPOUT 03:54 → WP 03:54
PROVIDERS: Obstetrics & Gynecology; Admitting Provider Obstetrics & Gynecology; PCP Family Medicine; Referring Provider Obstetrics & Gynecology; Visit Provider Obstetrics & Gynecology
DX: O32.2XX1 Maternal care for transverse and oblique lie, fetus 1 (principal); O30.043 Twin pregnancy, dichorionic/diamniotic, third trimester; O32.1XX2 Maternal care for breech presentation, fetus 2; Z37.2 Twins, both liveborn; Z3A.33 33 weeks gestation of pregnancy
CPT/HCPCS: 59025; 59050; 80307; 85025; 85027; 86703; 86762; 86780; 86803; 86850; 86900; 86901; 87340; 87426; 87491; 87591; 87653; 99218; 99251; J7120; A4216; G0378; G0463; J0702; J2405

== ENCOUNTER → 2021-02-26 10:58 | Outpatient (CLI) | payer OTHER, SELFPAY ==
[2021-02-26 11:27] LABS: Amphetamine Urine VISTA NEGATIVE (<1000 ng/mL); Barbiturate Urine VISTA NEGATIVE (< 200 ng/mL); Benzodiazepine Urine VISTA NEGATIVE (< 200 ng/mL); Cocaine Urine VISTA NEGATIVE (< 300 ng/mL); Ecstacy Urine VISTA NEGATIVE (< 500 ng/mL); Methadone Urine VISTA NEGATIVE (< 300 ng/mL); PCP Urine VISTA NEGATIVE (< 25 ng/mL); THC Urine VISTA NEGATIVE (< 50 ng/mL); Vista UDS pH Range 5
== END ==
PROVIDERS: PCP Family Medicine; Visit Provider Obstetrics & Gynecology
DX: Z13.89 Encounter for screening for other disorder (principal)
CPT/HCPCS: 80307

== ENCOUNTER 2021-07-09 15:54 | Outpatient (CLI) | payer OTHER, SELFPAY ==
[2021-07-10 09:01] LABS: HIV - WCH Non-Reactive (Nonreactive); Hepatitis B Surface Antigen Non-Reactive (Nonreactive); Hepatitis C Antibody Non-Reactive (Nonreactive); Syphilis Antibodies Non-reactive
[2021-07-12 00:06] LABS: Chlamydia By Nucleic Acid AMP Negative (Negative)
[2021-07-12 11:00] LABS: Gonococcus By Nucleic Acid AMP Negative (Negative)
[2021-07-13 14:14] LABS: HPV APTIMA, High Risk Negative (Negative)
== END 2021-07-09 23:59 | disposition home or self-care (01) ==
PROVIDERS: PCP Family Medicine; Visit Provider Obstetrics & Gynecology
DX: Z12.4 Encounter for screening for malignant neoplasm of cervix (principal)
CPT/HCPCS: 36415; 86703; 86780; 86803; 87340; 87491; 87591; 87624; 88175; G0145

== ENCOUNTER 2021-10-17 05:24 | Emergency (ER) | payer OTHER, SELFPAY ==
[2021-10-17 05:25] VITALS: BP 112/77; PULSE 98; RESP 17; TEMP 37.8; O2SAT 99; BMI 22.8
--- NOTE | 2021-10-17 05:37 | RAD_ITS ---
STUDY: X-RAY CHEST REASON FOR EXAM: Female, 36 years old. covid cough TECHNIQUE: AP COMPARISON: None. FINDINGS: The lungs are clear and expanded. There is no demonstrated pleural abnormality. Normal size heart. Normal mediastinum and luis alberto. Normal visualized pulmonary arteries. Normal visualized aortic arch and descending thoracic aorta. Normal visualized thoracic spine. Normal visualized ribs, clavicles, and shoulders. There is no demonstrated abnormality of the visualized soft tissue structures of the upper abdomen. RAD/Chest 1 View (Portable) IMPRESSION: Normal x-ray examination of the chest. Electronically Signed: Isaac Banda MD at 6:24 EDT ,
--- NOTE | 2021-10-17 05:38 | EX.ED.DYSGE1 ---
HPI History of Present Illness Chief Complaint: General Illness Informant: patient Narrative Narrative: 36-year-old female presenting to the emergency room out of concern for COVID-19. She states that she had some diarrhea yesterday at work and tonight got up to start getting ready for work and immediately felt that she was coming down with an illness. She notes runny nose cough sore throat loss of smell dyspnea and fever. She denies any significant medical problems. No history of asthma. She notes that she is late on her period but does not wish a test. She is not COVID vaccinated. PFSH PFSH Medical History no medical history no medical history Home Medications 1 caplet DAILY 10/20/20 [History Last Taken Unknown] albuterol sulfate [Ventolin HFA] 2 puff INHALATION Q4H PRN PRN #1 inhaler 10/17/21 [Rx Last Taken Unknown] Allergy/AdvReac Type Severity Reaction Status Date / Time acetaminophen Allergy Rash Verified 10/17/21 05:30 [From Tylenol-Codeine] codeine phosphate Allergy Rash Verified 10/17/21 05:30 [From Tylenol-Codeine] fentanyl AdvReac Other Verified 10/17/21 05:30 morphine AdvReac Rash Verified 10/17/21 05:30 propofol AdvReac Other Verified 10/17/21 05:30 Surgical History Hx of appendectomy Social History (Updated 10/17/21 @ 05:[address] Gaudencio Mckeon DO) Smoking Status: Former smoker substance use type: does not use ROS ROS ED Constitutional Constitutional ED: Reports chills and fever(s); Denies weight loss Eyes Eyes: Denies change in vision or diplopia ENT ENT ED: Reports rhinorrhea and sore throat; Denies ear pain Cardiovascular Cardiovascular: Denies chest pain, orthopnea, palpitations or racing heartbeat Respiratory/Chest Respiratory/Chest: Reports cough and dyspnea; Denies orthopnea Gastrointestinal Gastrointestinal: Reports diarrhea; Denies abdominal pain, nausea or vomiting Genitourinary Genitourinary ED: Denies dysuria, hematuria or urinary frequency Musculoskeletal Musculoskeletal: Reports myalgias; Denies arthralgias Integumentary Denies abscess or rash Neurologic Neurologic: Reports headache(s); Denies weakness Psychiatric Psychiatric: Denies anxiety, depression, suicidal ideation or suicidal thoughts Endocrine Endocrinology: Denies polydipsia, polyphagia or polyuria Allergic/Immunologic Allergic/Immunologic ED: Denies mouth swelling, tongue swelling or urticaria EXAM Physical Exam Const Vital Signs: 10/17/21 05:25 10/17/21 05:32 Temperature 100.1 F H Temperature Source Temporal Pulse Rate 98 Respiratory Rate 17 Respiratory Effort Short of Breath Respiratory Pattern Normal Blood Pressure 112/77 Blood Pressure Mean 88 Pulse Ox 99 Oxygen Delivery Method Room Air Positive well nourished and well developed General Appearance ED: well developed HEENT Reports normocephalic, head/scalp atraumatic, TM's clear and moist mucous membranes HEENT Narrative: Turbinate edema no oropharyngeal erythema or tonsillar exudates. Uvula appears normal Negative for trauma Tympanic Membrane ED: Yes TM's clear Eyes PERRL and EOMs intact bilaterally Neck no lymphadenopathy, supple and no JVD Resp normal respiratory effort Resp Narrative: Patient has a forceful cough. She has a slight expiratory wheeze in the right middle lung field Cardio regular rate, regular rhythm and no murmurs GI normal to inspection, nondistended, normoactive bowel sounds and non-tender Palpation: soft Back/Spine no CVA tenderness and normal ROM Extremity normal to inspection General Extremety ED: Negative for edema General Extremity: Negative for edema Neuro oriented x3 and CN's II-XII intact bilaterally Sensorium / Orientation: alert Motor Exam: strength 5/5 throughout Psych mental status grossly normal Mood & Affect: Negative for depressed or tearful Skin no rashes or lesions noted and no wounds MDM MDM MDM Narrative Medical decision making narrative: My interpretation of the chest x-ray is no acute process. Patient received Tylenol. Influenza and COVID-19 swab was was negative. A COVID PCR will be sent. I will write for the patient to have an albuterol MDI. She was advised that given her symptoms including the loss of smell that this is virtually pathognomonic for COVID-19 so she should assume that she has it. Radiography Diagnostic Testing: Clinical Impression(s) from Imaging Studies Chest X-Ray 10/17/21 05:37 IMPRESSION: Normal x-ray examination of the chest. Electronically Signed: Isaac Banda MD at 6:24 EDT , Discharge Plan Triage Chief Complaint: General Illness ED Provider: Gaudencio Mckeon Dx/Rx/DC Orders Clinical Impression: Acute viral syndrome, Acute bronchospasm Instructions: Coronavirus Disease 2019 (COVID-19): Caring for Yourself or Others Prescriptions: New albuterol sulfate [Ventolin HFA] 1 INHALER inhaler 2 puff inhalation Q4H PRN PRN (Reason: Wheezing) Qty: 1 RF: 0 No Action 1 caplet DAILY RF: 0 Primary Care Provider: Sherie Roland Referrals: Sherie Roland DO [Primary Care Provider] - Disposition Disposition: Home, Self Care
[2021-10-17] MEDS: Acetaminophen 500 MG Tablet 1000 MG PO (05:47)
[2021-10-17 06:26] VITALS: BP 134/88; PULSE 88; RESP 14; TEMP 37.4; O2SAT 97
== END 2021-10-17 06:28 | disposition home or self-care (01) ==
PROVIDERS: Emergency Provider Emergency Medicine; PCP Family Medicine; Visit Provider Emergency Medicine
DX: B34.9 Viral infection, unspecified (principal); J98.01 Acute bronchospasm; Z87.891 Personal history of nicotine dependence; Z28.310 Unvaccinated for COVID-19; Z28.9 Immunization not carried out for unspecified reason
CPT/HCPCS: 71045; 87428; 87635; 99283; U0003; U0005

== ENCOUNTER → 2021-12-11 | Outpatient (CLI) | payer OTHER, SELFPAY ==
[2021-12-11 18:01] LABS: Absolute Neutrophil Count 7.5 X10^3/uL (2.0-7.7); Basophil# 0.01 X10^3/uL; Basophil% 0.1 % (0-1); Eosinophil# 0.15 X10^3/uL; Eosinophils% 1.6 % (0-5); Hematocrit 34.6 % (37-47); Hemoglobin 11.7 g/dL (12.0-15.0); Mean Corp Hgb Conc 33.8 g/dL (32-36); Mean Corpuscular Hgb 32.2 pg (27.0-32.0); Mean Corpuscular Volume 95.3 fL (81-99); Mean Platelet Vol. 8.9 fl (6.2-12.0); Monocyte# 0.34 X10^3/uL; Monocyte% 3.7 % (0-10); NRBC Flagged by Analyzer 0 % (0-5); Neutrophil % 81.1 % (47-70); Platelet Count 306 K/mm3 (150-450); RBC Distribution Width CV 13.4 % (11.6-14.6); RBC Distribution Width SD 47.2 fl (35.1-43.9); Red Blood Count 3.63 M/mm3 (4.2-5.4); White Blood Count 9.3 K/mm3 (4.4-11.0)
[2021-12-12 08:13] LABS: HIV - WCH Non-Reactive (Nonreactive); Hepatitis B Surface Antigen Non-Reactive (Nonreactive); Hepatitis C Antibody Non-Reactive (Nonreactive); Rubella IgG Reactive (Nonreactive); Syphilis Antibodies Non-reactive
[2021-12-14 00:06] LABS: Chlamydia By Nucleic Acid AMP Negative (Negative)
[2021-12-14 08:37] LABS: Gonococcus By Nucleic Acid AMP Negative (Negative)
== END | disposition home or self-care (01) ==
LOC: WOBLAB 17:05
PROVIDERS: PCP Family Medicine; Visit Provider Obstetrics & Gynecology
DX: Z34.82 Encounter for supervision of other normal pregnancy, second trimester (principal)
CPT/HCPCS: 36415; 85025; 86703; 86762; 86780; 86803; 87077; 87086; 87088; 87186; 87340; 87491; 87591

== ENCOUNTER → 2022-02-01 | Outpatient (CLI) | payer OTHER, SELFPAY ==
[2022-02-01 17:17] LABS: Amphetamine Urine VISTA NEGATIVE (<1000 ng/mL); Barbiturate Urine VISTA NEGATIVE (< 200 ng/mL); Benzodiazepine Urine VISTA NEGATIVE (< 200 ng/mL); Cocaine Urine VISTA NEGATIVE (< 300 ng/mL); Ecstacy Urine VISTA NEGATIVE (< 500 ng/mL); Methadone Urine VISTA NEGATIVE (< 300 ng/mL); PCP Urine VISTA NEGATIVE (< 25 ng/mL); THC Urine VISTA NEGATIVE (< 50 ng/mL); Vista UDS pH Range 6
[2022-02-01 18:07] LABS: HIV - WCH Non-Reactive (Nonreactive); Hepatitis B Surface Antibody Non-Reactive; Syphilis Antibodies Non-reactive
[2022-02-03 08:08] LABS: HEPATITIS B SURFACE AG Negative (Negative); Hep C Antibodies <0.1 s/co ratio (0.0-0.9); Hepatitis A IgM Antibody Negative (Negative); Hepatitis B Core AB IgM Negative (Negative)
[2022-02-03 11:39] LABS: Hepatitis A AB, Total Negative (Negative)
== END | disposition home or self-care (01) ==
LOC: WOBLAB 15:23
PROVIDERS: PCP Family Medicine; Visit Provider Obstetrics & Gynecology
DX: R82.5 Elevated urine levels of drugs, medicaments and biological substances (principal); Z11.3 Encounter for screening for infections with a predominantly sexual mode of transmission
CPT/HCPCS: 36415; 80074; 80307; 86703; 86706; 86708; 86780

== ENCOUNTER → 2022-03-01 | Outpatient (CLI) | payer OTHER, SELFPAY ==
[2022-03-01 16:05] LABS: Absolute Lymphocyte Count 1.05 X10^3/uL (0.83-4.51); Absolute Neutrophil Count 6.7 X10^3/uL (2.0-7.7); Basophil# 0.02 X10^3/uL; Basophil% 0.2 % (0-1); Eosinophil# 0.09 X10^3/uL; Eosinophils% 1.1 % (0-5); Hematocrit 34.6 % (37-47); Hemoglobin 11.7 g/dL (12.0-15.0); Lymphocyte # 1.05 X10^3/ul (0.83-4.51); Lymphocyte % 12.6 % (19-41); Mean Corp Hgb Conc 33.8 g/dL (32-36); Mean Corpuscular Volume 94.5 fL (81-99); Mean Platelet Vol. 9.2 fl (6.2-12.0); Monocyte# 0.48 X10^3/uL; Monocyte% 5.8 % (0-10); NRBC Flagged by Analyzer 0 % (0-5); Neutrophil # 6.65 X10^3/uL (2.7-7.7); Neutrophil % 79.8 % (47-70); Platelet Count 306 K/mm3 (150-450); RBC Distribution Width CV 13.7 % (11.6-14.6); RBC Distribution Width SD 47.6 fl (35.1-43.9); Red Blood Count 3.66 M/mm3 (4.2-5.4); White Blood Count 8.3 K/mm3 (4.4-11.0)
[2022-03-01 16:38] LABS: Glucose Challenge Gest 1H 50g 137 mg/dL (70-140)
[2022-03-04 20:07] LABS: Chlamydia By Nucleic Acid AMP Negative (Negative)
[2022-03-05 12:01] LABS: Gonococcus By Nucleic Acid AMP Negative (Negative)
== END | disposition home or self-care (01) ==
LOC: LAB 14:09
PROVIDERS: PCP Family Medicine; Referring Provider Obstetrics & Gynecology; Visit Provider Obstetrics & Gynecology
DX: Z34.82 Encounter for supervision of other normal pregnancy, second trimester (principal)
CPT/HCPCS: 36415; 82950; 85025; 87491; 87591

== ENCOUNTER → 2022-04-22 | Outpatient (CLI) | payer OTHER, SELFPAY ==
[2022-04-22 12:25] LABS: Amphetamine Urine VISTA NEGATIVE (<1000 ng/mL); Barbiturate Urine VISTA NEGATIVE (< 200 ng/mL); Benzodiazepine Urine VISTA NEGATIVE (< 200 ng/mL); Cocaine Urine VISTA NEGATIVE (< 300 ng/mL); Ecstacy Urine VISTA NEGATIVE (< 500 ng/mL); Methadone Urine VISTA NEGATIVE (< 300 ng/mL); PCP Urine VISTA NEGATIVE (< 25 ng/mL); THC Urine VISTA NEGATIVE (< 50 ng/mL); Vista UDS pH Range 6
== END | disposition home or self-care (01) ==
LOC: LABSPEC 11:57
PROVIDERS: PCP Family Medicine; Visit Provider Obstetrics & Gynecology
DX: Z34.83 Encounter for supervision of other normal pregnancy, third trimester (principal); F11.11 Opioid abuse, in remission
CPT/HCPCS: 80307

== ENCOUNTER → 2022-04-30 | Outpatient (CLI) | payer OTHER, SELFPAY ==
[2022-04-30 13:28] LABS: Amphetamine Urine VISTA NEGATIVE (<1000 ng/mL); Barbiturate Urine VISTA NEGATIVE (< 200 ng/mL); Benzodiazepine Urine VISTA NEGATIVE (< 200 ng/mL); Cocaine Urine VISTA NEGATIVE (< 300 ng/mL); Ecstacy Urine VISTA NEGATIVE (< 500 ng/mL); Methadone Urine VISTA NEGATIVE (< 300 ng/mL); PCP Urine VISTA NEGATIVE (< 25 ng/mL); THC Urine VISTA NEGATIVE (< 50 ng/mL); Vista UDS pH Range 8
== END | disposition home or self-care (01) ==
LOC: LABSPEC 11:00
PROVIDERS: PCP Family Medicine; Visit Provider Obstetrics & Gynecology
DX: O09.523 Supervision of elderly multigravida, third trimester (principal); Z3A.00 Weeks of gestation of pregnancy not specified
CPT/HCPCS: 80307

== ENCOUNTER 2022-05-07 05:00 | Inpatient (IN) | payer OTHER, SELFPAY ==
[2022-05-07] VITALS (18 sets, daily range): BP systolic 91–122; BP diastolic 52–79; PULSE 62–100; RESP 16–18; TEMP 36.1–36.9; O2SAT 93–100; BMI 25.0
[2022-05-07] MEDS: Lactated Ringers 1,000 ML 999 ML IV (05:20)
[2022-05-07 05:40] LABS: Absolute Lymphocyte Count 0.44 X10^3/uL (0.83-4.51); Absolute Neutrophil Count 6.4 X10^3/uL (2.0-7.7); Basophil# 0.01 X10^3/uL; Basophil% 0.1 % (0-1); Differential Indicated SCAN CRITERIA MET; Eosinophil# 0.06 X10^3/uL; Eosinophils% 0.8 % (0-5); Hematocrit 34.3 % (37-47); Hemoglobin 11.3 g/dL (12.0-15.0); Lymphocyte # 0.44 X10^3/ul (0.83-4.51); Mean Corp Hgb Conc 32.9 g/dL (32-36); Mean Corpuscular Hgb 29.6 pg (27.0-32.0); Mean Corpuscular Volume 89.8 fL (81-99); Mean Platelet Vol. 9.4 fl (6.2-12.0); Monocyte# 0.44 X10^3/uL; NRBC Flagged by Analyzer 0 % (0-5); Neutrophil # 6.35 X10^3/uL (2.7-7.7); Neutrophil % 85.9 % (47-70); POSITIVE DIFFERENTIAL YES; Platelet Count 273 K/mm3 (150-450); RBC Distribution Width CV 13.9 % (11.6-14.6); RBC Distribution Width SD 45.2 fl (35.1-43.9); Red Blood Count 3.82 M/mm3 (4.2-5.4); White Blood Count 7.4 K/mm3 (4.4-11.0)
[2022-05-07 05:57] LABS: Differential Comment SCANNED
[2022-05-07] MEDS: Lactated Ringers 1,000 ML 150 ML IV (06:24)
[2022-05-07] MEDS: Acetaminophen 500 MG Tablet 1000 MG PO ×3 (06:24→18:30)
--- NOTE | 2022-05-07 06:42 | PCM.HP.BLA ---
History and Physical Date of Admission: 05/07/22 Chief complaint: Repeat section History present illness: 37-year-old G5, P4 at 39 weeks and 1 day with BREONNA 05/13/2022 arrives for repeat section. Denies headache, vision change, chest pain, shortness of breath, nausea vomit, right upper quadrant pain. Patient states good movement. is complicated by AMA, polyhydramnios, history of section Obstetric history: G1: 39-week G2: 39-week G3: 39-week G4: 34-week twin primary section G5: Current Past medical history: None Medications: vitamin Past surgical history: section, appendectomy Family history: Denies history DVT or PE Social history: Former smoker, previous opioid use. Denies alcohol use Review of systems: Besides above pertinent positives a full review of systems was performed and found to be negative Physical exam: Vitals: Blood pressure 114/79 pulse 100 respiratory rate 16 temperature 97.8 ?F SPO2 97% on room air General: Normal-appearing no acute distress HEENT: Normocephalic/atraumatic no cervical of adenopathy Cardiac/respiratory: No use accessory muscles, nonlabored breathing Abdomen: Soft, nontender, gravid Extremities: No peripheral edema normal peripheral pulses Psych: Normal affect normal demeanor nonpressured speech Labs: White blood cell count 7.4 hemoglobin 11.3 hematocrit 34.3% platelets 273 Assessment plan: 37-year-old at 39 weeks and 1 day for repeat section Admit labor and delivery CEFM GBS positive 2 g Ancef Anesthesia see
[2022-05-07] MEDS: Sodium Citrate/Citric Acid 30 ML UDC PO (06:56)
[2022-05-07] MEDS: Cefazolin 2 GM in 0.9% Normal Saline 100 ML IV (07:05)
[2022-05-07] MEDS: Methylergonovine 0.2 MG/ML Ampul IM (07:45)
--- NOTE | 2022-05-07 08:08 | OP.PCM_ITS ---
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 Normal uterus, tubes, and ovaries. Moderate amount of adhesions vesicouterine. Methergine IM given prophylactically Consent: Patient with history of section desires repeat low-transverse section Via Pfannenstiel incision. Patient understands the risk of the procedure include but are not limited to visceral or vascular injury, prolonged hospitalization, blood loss need for transfusion, reoperation. Patient state understanding wish to proceed. All questions were answered and consent was signed. Procedure: Patient was brought back to the OR where spinal anesthesia was found to be inadequate, patient elects for general anesthesia. Patient was prepared and draped in a supine position with leftward tilt. 2 g of Ancef were given for infection prophylaxis. A Pfannenstiel incision was made at the skin with a scalpel. The incision was carried down to the fascia with a scalpel. The fascia was excised and extended laterally. Rectus muscle was dissected at the midline down to the level of pubic symphysis. Preperitoneal tissue was noted and peritoneum was entered bluntly. Peritoneum was extended superiorly and inferiorly with good visualization of bladder. Bladder blade was inserted and vesicouterine peritoneum was identified. Bladder blade was inserted and low transverse hysterotomy was made. Hand was placed into the incision and gentle fundal pressure was applied once the bladder blade was removed and the head was brought into the incision. Head and shoulders were delivered with ease. Cord was clamped and cut. Baby is handed off to nursing. Placenta was delivered via cord traction and fundal massage. IV oxytocin was initiated in order to facilitate uterine contractions. Prophylactic Methergine IM given. Uterus was exteriorized and wiped out with dry laparotomy sponge in order to remove r emaining placental membranes. Uterus was closed in a continuous running fashion. Good hemostasis was noted. Uterus was placed back into the abdominal cavity and the incision was reinspected, good hemostasis was noted. Fascia was closed in a continuous running fashion with PDS suture. Subcutaneous irrigation was performed, good hemostasis was noted. Skin was closed in a subcuticular fashion. All counts were correct x2. Patient tolerated procedure well and was brought to recovery in a stable condition.
[2022-05-07] MEDS: Oxytocin 15 Units/NS 250ml 15 UNITS/250 ML IV.SOLN 83 UNITS IV (09:00)
[2022-05-07] MEDS: proCHLORPERazine 10 MG/2 ML Vial IV (09:18)
[2022-05-07] MEDS: HYDROmorphone 1 MG/ML Syringe IV ×5 (09:22→23:51)
[2022-05-07] MEDS: Senna/Docusate Sodium 1 Tablet PO (10:30)
--- NOTE | 2022-05-07 11:03 | NURSING ---
Pt legs restless and instructed to not get out of bed; pt verbalize understanding.
[2022-05-07] MEDS: Ibuprofen 600 MG Tablet PO ×2 (12:28→18:30)
[2022-05-07] MEDS: 0.9% Saline Lock 10 ML Syringe IV ×3 (15:58→23:51)
[2022-05-08] VITALS: BP 98/62; PULSE 83; RESP 16; TEMP 36.3
[2022-05-08] MEDS: Ibuprofen 600 MG Tablet PO ×4 (00:42→18:46)
[2022-05-08] MEDS: Acetaminophen 500 MG Tablet 1000 MG PO ×4 (00:43→18:46)
[2022-05-08] MEDS: 0.9% Saline Lock 10 ML Syringe IV ×2 (03:42→07:56)
[2022-05-08] MEDS: HYDROmorphone 1 MG/ML Syringe IV ×2 (03:42→07:56)
[2022-05-08 03:55] VITALS: BP 103/54; PULSE 82; RESP 16; TEMP 36.4
[2022-05-08 05:58] LABS: Hemoglobin 10.3 g/dL (12.0-15.0); Mean Corp Hgb Conc 32.2 g/dL (32-36); Mean Corpuscular Hgb 29.7 pg (27.0-32.0); Mean Corpuscular Volume 92.2 fL (81-99); Mean Platelet Vol. 9.3 fl (6.2-12.0); Platelet Count 246 K/mm3 (150-450); RBC Distribution Width SD 47.4 fl (35.1-43.9); Red Blood Count 3.47 M/mm3 (4.2-5.4); White Blood Count 9.8 K/mm3 (4.4-11.0)
--- NOTE | 2022-05-08 08:18 | PCM.PN.OB ---
Subjective Subjective No overnight complaints Objective Data Objective Data Vital Signs: Vital Signs Temp Pulse Resp BP Pulse Ox O2 Del Method 97.5 F L 82 16 103/54 L 95 Room Air 05/08/22 03:55 05/08/22 03:55 05/08/22 03:55 05/08/22 03:55 05/07/22 20:35 05/08/22 00:00 Oxygen Delivery Method Room Air Weight: 150 lb 12.739 oz Body Mass Index (BMI) 25.0 Intake & Output: Intake and Output for Last 24 Hours 05/06/22 05/07/22 05/08/22 23:59 23:59 23:59 Intake Total 1749 / 1749 Output Total 775 / 775 250 / 250 Balance 974 / 974 -250 / -250 Lab / Micro Data Result Diagrams: 05/08/22 05:50 Labs: Laboratory Results - last 24 hr 05/08/22 05:50: WBC 9.8, RBC 3.47 L, Hgb 10.3 L, Hct 32.0 L, MCV 92.2, MCH 29.7, MCHC 32.2, RDW Std Deviation 47.4 H, RDW Coeff of [place] 14.0, Plt Count 246, MPV 9.3 Physical Exam Const alert, oriented x3, no apparent distress, average body habitus, healthy appearing and well nourished HEENT normocephalic and moist oral mucous membranes Eyes PERRL Neck full ROM Resp normal respiratory effort, no retractions and no use of accessory muscles GI GI Narrative: Soft, nontender, bandage clean dry and intact Extremity normal to inspection, full ROM and no clubbing, cyanosis or edema Neuro moves all extremities and no focal motor deficits Psych mental status grossly normal, affect normal, speech normal and activity/motor behavior normal Assessment & Plan (1) delivery delivered: PLAN: Postop day 1 status post repeat section. Baby for adoption. Pain well controlled. Likely discharge home tomorrow
[2022-05-08 08:54] VITALS: BP 98/64; PULSE 73; RESP 18; TEMP 36.2; O2SAT 96
[2022-05-08] MEDS: Senna/Docusate Sodium 1 Tablet PO (10:09)
[2022-05-08] MEDS: oxyCODONE 5 MG Tablet PO ×3 (11:03→19:20)
[2022-05-08 15:48] VITALS: BP 101/69; PULSE 83; RESP 16; TEMP 36.1; O2SAT 97
[2022-05-08 21:00] VITALS: BP 98/67; PULSE 70; RESP 16; TEMP 36.3; O2SAT 97
[2022-05-09] MEDS: Acetaminophen 500 MG Tablet 1000 MG PO ×2 (01:02→07:55)
[2022-05-09] MEDS: Ibuprofen 600 MG Tablet PO ×2 (01:02→07:55)
[2022-05-09] MEDS: oxyCODONE 5 MG Tablet PO ×3 (01:02→12:13)
[2022-05-09 01:04] VITALS: BP 103/72; PULSE 78; RESP 18; TEMP 36.3; O2SAT 99
--- NOTE | 2022-05-09 07:53 | PCM.DC.BLA ---
Discharge Summary Date of Admission: 05/07/22 Date of Discharge: 05/09/22 Summary: Patient arrives on 05/07/2022 for scheduled repeat section at term. Repeat section on 05/07/2022. Routine postoperative recovery. Discharge home on 05/09/2022 Meaningful Use Info Meaningful Use Diagnoses (Choose all that apply): None applicable Discharge Plan Admission Admit Date/Time: 05/07/22 05:00 Primary Reason for Your Visit: Repeat cesearan section Attending Provider: Lobo Juarez Primary Care Provider: Sherie Roland Instructions Additional Instructions / Restrictions: Regular diet. Okay to shower. No tub baths for 2 weeks. No intercourse for 4 to 6 weeks. No lifting over 25 pounds for 2 to 3 weeks. Call if fevers, chills, chest pain, shortness of breath. Follow-up 2 weeks postoperatively Discharge Orders/Prescriptions Prescriptions: New oxycodone 5 mg Tablet 5 mg PO Q6H PRN PRN (Reason: Pain Score 7-10) 5 Days Qty: 20 0RF Continued 1 caplet PO.IVFORM DAILY Referrals / Follow Up: Sherie Roland DO [Primary Care Provider] - Disposition Disposition (needs filled in before D/C Order can be placed): Home, Self Care
--- NOTE | 2022-05-09 07:54 | PCM.PN.OB ---
Subjective Subjective No overnight complaints Objective Data Objective Data Vital Signs: Vital Signs Temp Pulse Resp BP Pulse Ox O2 Del Method 97.4 F L 78 18 103/72 99 Room Air 05/09/22 01:04 05/09/22 01:04 05/09/22 01:04 05/09/22 01:04 05/09/22 01:04 05/09/22 01:04 Oxygen Delivery Method Room Air Weight: 150 lb 12.739 oz Body Mass Index (BMI) 25.0 Intake & Output: Intake and Output for Last 24 Hours 05/07/22 05/08/22 05/09/22 23:59 23:59 23:59 Intake Total 1749 / 1749 Output Total 775 / 775 250 / 250 Balance 974 / 974 -250 / -250 Lab / Micro Data Result Diagrams: 05/08/22 05:50 Physical Exam Const alert, oriented x3, no apparent distress, average body habitus, healthy appearing and well nourished HEENT normocephalic and moist oral mucous membranes Eyes PERRL Neck full ROM Resp normal respiratory effort, no retractions and no use of accessory muscles Extremity normal to inspection, full ROM and no clubbing, cyanosis or edema Neuro moves all extremities and no focal motor deficits Psych mental status grossly normal, affect normal, speech normal and activity/motor behavior normal Assessment & Plan (1) delivery delivered: PLAN: Postop day 2 status post repeat section at term. Baby for adoption. Pain well controlled. Okay to discharge home today
[2022-05-09 07:57] VITALS: BP 113/67; PULSE 75; RESP 16; TEMP 36.8; O2SAT 97
[2022-05-09] MEDS: Senna/Docusate Sodium 1 Tablet PO (10:27)
[2022-05-09 11:51] VITALS: BP 110/73; PULSE 73; RESP 18; TEMP 36.3; O2SAT 97
--- NOTE | 2022-05-09 12:16 | NURSING ---
Infants adoptive mother driving pt home, pain medication given prior to discharge.
--- NOTE | 2022-05-09 12:26 | NURSING ---
Okay for discharge per Social work.
== END 2022-05-09 12:15 | disposition home or self-care (01) | DRG 788 ==
PROVIDERS: Admitting Provider Obstetrics & Gynecology; PCP Family Medicine; Referring Provider Obstetrics & Gynecology; Visit Provider Obstetrics & Gynecology
PROC: 10D00Z1 Extraction of Products of Conception, Low, Open Approach (ICD-10-PCS; CPT 59514; principal; 2022-05-07 06:55)
DX: O34.219 Maternal care for unspecified type scar from previous cesarean delivery (principal); O40.3XX0 Polyhydramnios, third trimester, not applicable or unspecified; O99.824 Streptococcus B carrier state complicating childbirth; Z3A.39 39 weeks gestation of pregnancy; Z37.0 Single live birth; Z87.891 Personal history of nicotine dependence
CPT/HCPCS: 59025; 59050; 85025; 85027; 86850; 86900; 86901; 99218; 99251; J7120; A4216; G0378; G0463; J2405

== ENCOUNTER → 2022-12-17 | Outpatient (CLI) | payer BC, SELFPAY ==
[2022-12-17 15:16] LABS: Absolute Lymphocyte Count 1.29 X10^3/uL (0.83-4.51); Absolute Neutrophil Count 5.5 X10^3/uL (2.0-7.7); Basophil# 0.02 X10^3/uL; Basophil% 0.3 % (0-1); Eosinophil# 0.16 X10^3/uL; Eosinophils% 2.1 % (0-5); Hematocrit 45.9 % (37-47); Hemoglobin 14.6 g/dL (12.0-15.0); Lymphocyte # 1.29 X10^3/ul (0.83-4.51); Lymphocyte % 17.2 % (19-41); Mean Corp Hgb Conc 31.8 g/dL (32-36); Mean Corpuscular Hgb 30.7 pg (27.0-32.0); Mean Corpuscular Volume 96.6 fL (81-99); Mean Platelet Vol. 9.7 fl (6.2-12.0); Monocyte# 0.45 X10^3/uL; NRBC Flagged by Analyzer 0 % (0-5); Neutrophil # 5.54 X10^3/uL (2.7-7.7); Platelet Count 356 K/mm3 (150-450); RBC Distribution Width CV 14.1 % (11.6-14.6); Red Blood Count 4.75 M/mm3 (4.2-5.4); White Blood Count 7.5 K/mm3 (4.4-11.0)
[2022-12-17 15:37] LABS: ALB/GLOB Ratio 0.9 RATIO (0.9-2.4); AST(SGOT) 28 U/L (15-37); Alanine Aminotransfer ALT/SGPT 34 U/L (13-56); Albumin, Serum 3.8 g/dL (3.2-5.0); Alkaline Phosphatase 57 U/L (45-117); Anion Gap 6 (5-15); BUN 15 mg/dL (7-18); BUN/Creat Ratio 15.8 RATIO (10-20); Calcium,Total 8.5 mg/dL (8.5-10.1); Chloride 107 mmol/L (98-107); Creatinine, Serum 0.95 mg/dL (0.55-1.02); EST Glomerular Filtration Rate 71 mL/min (>60); Est Glom Filt Rate - Afr Amer 86 mL/min (>60); Ferritin 16 ng/mL (8-252); Globulin 4.1 g/dL (2.2-4.2); Glucose 86 mg/dL (74-106); Iron 178 ug/dL (50-170); Magnesium 2.1 mg/dL (1.6-2.6); Protein, Total 7.9 g/dL (6.4-8.2); Sodium Level 137 mmol/L (136-145); T4 Free Direct 0.86 ng/dL (0.76-1.46); Thyroid Stim Hormone (TSH) 2.47 uIU/mL (0.358-3.74)
[2022-12-17 16:52] LABS: HIV - WCH Non-Reactive (Nonreactive); Vitamin B12 325 pg/mL (211-911)
== END | disposition home or self-care (01) ==
PROVIDERS: PCP Family Medicine; Referring Provider Family Medicine; Visit Provider Family Medicine
DX: R53.83 Other fatigue (principal); Z11.4 Encounter for screening for human immunodeficiency virus [HIV]
CPT/HCPCS: 36415; 80053; 82306; 82607; 82728; 83540; 83735; 84439; 84443; 85025; 86703

== ENCOUNTER 2023-05-07 07:37 | Emergency (ER) | payer BC, SELFPAY ==
[2023-05-07 07:39] VITALS: BP 116/83; PULSE 94; RESP 14; TEMP 36.4; O2SAT 98; BMI 23.2
--- NOTE | 2023-05-07 07:57 | EDS_ITS ---
HPI History of Present Illness Chief Complaint: Cold Sx Informant: patient Narrative Narrative: 38-year-old female, presenting with her twins who are also sick, to the emergency department with myalgias and diarrhea. Symptoms began yesterday and into the night. She denies any nausea vomiting. She notes diarrhea. Generalized body aches. No documented fever. She does have some mild rhinorrhea. She works at [employer]. She denies sore throat. No significant cough. PFSH PFSH Medical History Anxiety History of pre-term labor Polyhydramnios Home Medications 1 caplet PO.IVFORM DAILY 10/20/20 [History Last Taken 05/06/22 08:00] oxycodone 5 mg tablet 5 mg PO Q6H PRN PRN Pain Score 7-10 5 days #20 tabs 05/08/22 [Rx Last Taken Unknown] Allergy/AdvReac Type Severity Reaction Status Date / Time acetaminophen Allergy Rash Verified 05/07/23 07:40 [From Tylenol-Codeine] codeine phosphate Allergy Rash Verified 05/07/23 07:40 [From Tylenol-Codeine] fentanyl AdvReac Other Verified 05/07/23 07:40 Surgical History Hx of appendectomy Social History Smoking Status: Former smoker substance use type: does not use ROS ROS ED Constitutional Constitutional ED: Denies chills, fever(s) or weight loss Eyes Eyes: Denies change in vision or diplopia ENT ENT ED: Reports rhinorrhea; Denies ear pain or sore throat Cardiovascular Cardiovascular: Denies chest pain, orthopnea, palpitations or racing heartbeat Respiratory/Chest Respiratory/Chest: Denies cough, dyspnea or orthopnea Gastrointestinal Gastrointestinal: Reports diarrhea; Denies abdominal pain, nausea or vomiting Genitourinary Genitourinary ED: Denies dysuria, hematuria or urinary frequency Musculoskeletal Musculoskeletal: Reports myalgias; Denies arthralgias, back pain or neck pain Integumentary Denies abscess or rash Neurologic Neurologic: Denies headache(s) or weakness Psychiatric Psychiatric: Denies anxiety, depression, suicidal ideation or suicidal thoughts Endocrine Endocrinology: Denies polydipsia, polyphagia or polyuria Allergic/Immunologic Allergic/Immunologic ED: Denies mouth swelling, tongue swelling or urticaria EXAM Physical Exam Const Vital Signs: 05/07/23 07:39 05/07/23 07:55 Temperature 97.5 F L Temperature Source Temporal Pulse Rate 94 Respiratory Rate 14 Respiratory Effort Normal Non-Labored Respiratory Pattern Normal Blood Pressure 116/83 H Blood Pressure Mean 94 Pulse Ox 98 Oxygen Delivery Method Room Air Positive well nourished and well developed General Appearance ED: well developed HEENT Reports normocephalic, head/scalp atraumatic and moist mucous membranes Eyes PERRL and EOMs intact bilaterally Neck no lymphadenopathy, supple and no JVD Resp normal respiratory effort and clear to auscultation bilaterally Cardio regular rate, regular rhythm and no murmurs GI normal to inspection, nondistended, normoactive bowel sounds and non-tender Palpation: soft Back/Spine no CVA tenderness and normal ROM Extremity normal to inspection General Extremety ED: Negative for edema General Extremity: Negative for edema Neuro oriented x3 and CN's II-XII intact bilaterally Sensorium / Orientation: alert Motor Exam: strength 5/5 throughout Psych mental status grossly normal Mood & Affect: Negative for depressed or tearful Skin no rashes or lesions noted and no wounds MDM MDM MDM Narrative Medical decision making narrative: Patient's COVID and influenza are negative. The children's RSV test are positive. I suspect the patient has RSV. Treatment would be supportive. Return if worsening or concerns Discharge Plan Triage Chief Complaint: Cold Sx ED Provider: Gaudencio Mckeon Dx/Rx/DC Orders Instructions: ED URI, Viral, No Abx (Adult) Prescriptions: No Action 1 caplet PO.IVFORM DAILY oxycodone 5 mg Tablet 5 mg PO Q6H PRN PRN (Reason: Pain Score 7-10) 5 Days Qty: 20 0RF Primary Care Provider: Sherie Roland Referrals: Sherie Roland DO [Primary Care Provider] - As Needed Disposition Disposition: Home, Self Care
== END 2023-05-07 09:46 | disposition home or self-care (01) ==
PROVIDERS: Emergency Provider Emergency Medicine; PCP Family Medicine; Referring Provider Emergency Medicine; Visit Provider Emergency Medicine
DX: M79.10 Myalgia, unspecified site (principal); R19.7 Diarrhea, unspecified; Z87.891 Personal history of nicotine dependence
CPT/HCPCS: 87428; 99282

== ENCOUNTER → 2023-06-13 | Outpatient (CLI) | payer BC, SELFPAY ==
[2023-06-13 17:54] LABS: Absolute Lymphocyte Count 1.97 X10^3/uL (0.83-4.51); Absolute Neutrophil Count 3.1 X10^3/uL (2.0-7.7); Basophil# 0.02 X10^3/uL; Basophil% 0.4 % (0-1); Eosinophil# 0.06 X10^3/uL; Eosinophils% 1.1 % (0-5); Hematocrit 45.5 % (37-47); Hemoglobin 15.3 g/dL (12.0-15.0); Lymphocyte # 1.97 X10^3/ul (0.83-4.51); Lymphocyte % 35.4 % (19-41); Mean Corp Hgb Conc 33.6 g/dL (32-36); Mean Corpuscular Hgb 31.5 pg (27.0-32.0); Mean Corpuscular Volume 93.6 fL (81-99); Mean Platelet Vol. 9.3 fl (6.2-12.0); Monocyte# 0.36 X10^3/uL; Monocyte% 6.5 % (0-10); NRBC Flagged by Analyzer 0 % (0-5); Neutrophil # 3.14 X10^3/uL (2.7-7.7); Neutrophil % 56.4 % (47-70); Platelet Count 302 K/mm3 (150-450); RBC Distribution Width CV 12.6 % (11.6-14.6); RBC Distribution Width SD 43.3 fl (35.1-43.9); Red Blood Count 4.86 M/mm3 (4.2-5.4); White Blood Count 5.6 K/mm3 (4.4-11.0)
[2023-06-13 17:56] LABS: Erythrocyte Sedimentation Rate < 1 mm/hr (0-30)
[2023-06-13 18:02] LABS: AST(SGOT) 100 U/L (15-37); Alanine Aminotransfer ALT/SGPT 117 U/L (13-56); Albumin, Serum 3.7 g/dL (3.2-5.0); Alkaline Phosphatase 79 U/L (45-117); Anion Gap 5 (5-15); BUN 16 mg/dL (7-18); BUN/Creat Ratio 18.1 RATIO (10-20); CRP < 2.90 mg/L (0.0-3.0); Calcium,Total 8.1 mg/dL (8.5-10.1); Chloride 102 mmol/L (98-107); Creatinine, Serum 0.88 mg/dL (0.55-1.02); EST Glomerular Filtration Rate 77 mL/min (>60); Est Glom Filt Rate - Afr Amer 93 mL/min (>60); Ferritin 184 ng/mL (8-252); Globulin 3.7 g/dL (2.2-4.2); Glucose 85 mg/dL (74-106); Iron 264 ug/dL (50-170); Potassium 4.4 mmol/L (3.5-5.1); Protein, Total 7.4 g/dL (6.4-8.2); Sodium Level 134 mmol/L (136-145); T4 Free Direct 1.09 ng/dL (0.76-1.46); Thyroid Stim Hormone (TSH) 1.98 uIU/mL (0.358-3.74)
[2023-06-13 18:17] LABS: HIV - WCH Non-Reactive (Nonreactive); Vitamin B12 515 pg/mL (211-911); Vitamin D,25 Hydroxy 25.3 ng/mL
[2023-06-16 10:13] LABS: ANTINUCLEAR ANTIBODIES DIRECT Negative (Negative)
== END | disposition home or self-care (01) ==
LOC: BFHLAB 14:16
PROVIDERS: PCP Family Medicine; Visit Provider Nurse Practitioner Family
DX: R53.83 Other fatigue (principal); M25.50 Pain in unspecified joint; Z20.9 Contact with and (suspected) exposure to unspecified communicable disease
CPT/HCPCS: 36415; 80053; 82306; 82607; 82728; 83540; 84439; 84443; 85025; 85652; 86038; 86140; 86703

== ENCOUNTER → 2023-06-13 | Outpatient (CLI) | payer BC, SELFPAY ==
[2023-06-18 18:07] LABS: Age Gdln ACOG Testing 30-65 (.); HPV APTIMA, High Risk Negative (Negative)
[2023-06-18 20:01] LABS: HPV Reflexed? YES, CHARGE PATIENT
== END | disposition home or self-care (01) ==
PROVIDERS: Visit Provider Nurse Practitioner Family
DX: Z12.4 Encounter for screening for malignant neoplasm of cervix (principal)
CPT/HCPCS: 87624; 88175; G0145

== ENCOUNTER → 2023-09-15 | Outpatient (CLI) | payer BC, SELFPAY ==
[2023-09-15 17:42] LABS: Absolute Lymphocyte Count 1.54 X10^3/uL (0.83-4.51); Absolute Neutrophil Count 3.8 X10^3/uL (2.0-7.7); Basophil# 0.02 X10^3/uL; Basophil% 0.3 % (0-1); Eosinophil# 0.18 X10^3/uL; Hematocrit 39.2 % (37-47); Hemoglobin 12.8 g/dL (12.0-15.0); Lymphocyte # 1.54 X10^3/ul (0.83-4.51); Mean Corp Hgb Conc 32.7 g/dL (32-36); Mean Corpuscular Hgb 30.8 pg (27.0-32.0); Mean Corpuscular Volume 94.5 fL (81-99); Mean Platelet Vol. 9.6 fl (6.2-12.0); Monocyte% 6.7 % (0-10); NRBC Flagged by Analyzer 0 % (0-5); Neutrophil # 3.77 X10^3/uL (2.7-7.7); Neutrophil % 63.7 % (47-70); Platelet Count 308 K/mm3 (150-450); RBC Distribution Width CV 11.9 % (11.6-14.6); RBC Distribution Width SD 41.2 fl (35.1-43.9); Red Blood Count 4.15 M/mm3 (4.2-5.4); White Blood Count 5.9 K/mm3 (4.4-11.0)
[2023-09-15 18:52] LABS: ALB/GLOB Ratio 1.1 RATIO (0.9-2.4); AST(SGOT) 18 U/L (15-37); Alanine Aminotransfer ALT/SGPT 21 U/L (13-56); Alkaline Phosphatase 48 U/L (45-117); Anion Gap 5 (5-15); BUN 13 mg/dL (7-18); BUN/Creat Ratio 16.5 RATIO (10-20); Calcium,Total 8.9 mg/dL (8.5-10.1); Chloride 106 mmol/L (98-107); Cholesterol 223 mg/dL (200); Creatinine, Serum 0.79 mg/dL (0.55-1.02); EST Glomerular Filtration Rate 88 mL/min (>60); Est Glom Filt Rate - Afr Amer 106 mL/min (>60); Globulin 3.6 g/dL (2.2-4.2); Glucose 86 mg/dL (74-106); High Density Lipoprotein 43 mg/dL; Protein, Total 7.6 g/dL (6.4-8.2); Sodium Level 137 mmol/L (136-145); Triglycerides 122 mg/dL; Very Low Density Lipoprotein 24 mg/dL (5-40)
[2023-09-15 19:38] LABS: HIV - WCH Non-Reactive (Nonreactive); Syphilis Antibodies Non-reactive
== END | disposition home or self-care (01) ==
LOC: BFHLAB 16:32
PROVIDERS: PCP Nurse Practitioner Family; Referring Provider Nurse Practitioner Family; Visit Provider Nurse Practitioner Family
DX: Z00.01 Encounter for general adult medical examination with abnormal findings (principal); Z20.9 Contact with and (suspected) exposure to unspecified communicable disease
CPT/HCPCS: 36415; 80053; 80061; 85025; 86703; 86780

== ENCOUNTER → 2023-12-10 | Outpatient (CLI) | payer BC, SELFPAY ==
--- NOTE | 2023-12-10 11:19 | RAD_ITS ---
STUDY: X-RAY - LUMBAR SPINE REASON FOR EXAM: Female, 38 years old. BACK PAIN TECHNIQUE: 5 view(s) of the lumbar spine were obtained. COMPARISON: None FINDINGS: Normal lumbar lordosis. There is no substantial scoliosis. There is a normal alignment of the vertebrae. Normal vertebral bodies and endplates. Normal disc space heights. The soft tissue structures are unremarkable. RAD/L/S Spine Min 4 Views IMPRESSION: Normal x-ray examination of the lumbar spine. Electronically Signed: Franco Guerrier MD at 12:37 EDT ,
== END | disposition home or self-care (01) ==
LOC: MTRAD 11:16
PROVIDERS: PCP Nurse Practitioner Family; Referring Provider Nurse Practitioner Family; Visit Provider Nurse Practitioner Family
DX: M54.50 Low back pain, unspecified (principal)
CPT/HCPCS: 72110

== ENCOUNTER → 2024-01-27 | Outpatient (CLI) | payer BC, SELFPAY ==
[2024-01-27 16:00] LABS: ALB/GLOB Ratio 1.1 RATIO (0.9-2.4); AST(SGOT) 23 U/L (15-37); Alanine Aminotransfer ALT/SGPT 28 U/L (13-56); Albumin, Serum 3.9 g/dL (3.2-5.0); Alkaline Phosphatase 73 U/L (45-117); Anion Gap 8 (5-15); BUN 8 mg/dL (7-18); BUN/Creat Ratio 9.4 RATIO (10-20); Calcium,Total 8.8 mg/dL (8.5-10.1); Chloride 104 mmol/L (98-107); Creatinine, Serum 0.85 mg/dL (0.55-1.02); EST Glomerular Filtration Rate 80 mL/min (>60); Est Glom Filt Rate - Afr Amer 96 mL/min (>60); Ferritin 67 ng/mL (8-252); Globulin 3.6 g/dL (2.2-4.2); Glucose 89 mg/dL (74-106); Iron 86 ug/dL (50-170); Potassium 3.8 mmol/L (3.5-5.1); Protein, Total 7.5 g/dL (6.4-8.2); Sodium Level 136 mmol/L (136-145); T4 Free Direct 0.85 ng/dL (0.76-1.46); Thyroid Stim Hormone (TSH) 0.429 uIU/mL (0.358-3.740)
[2024-01-27 16:21] LABS: HIV - WCH Non-Reactive (Nonreactive); Hepatitis C Antibody Non-Reactive (Nonreactive); Vitamin B12 455 pg/mL (211-911); Vitamin D,25 Hydroxy 52.1 ng/mL
== END | disposition home or self-care (01) ==
LOC: BFHLAB 13:46
PROVIDERS: PCP Nurse Practitioner Family; Referring Provider Nurse Practitioner Family; Visit Provider Nurse Practitioner Family
DX: R53.83 Other fatigue (principal); Z20.9 Contact with and (suspected) exposure to unspecified communicable disease
CPT/HCPCS: 36415; 80053; 82306; 82607; 82728; 83540; 84439; 84443; 86703; 86803

== ENCOUNTER 2025-05-06 09:07 | Emergency (ER) | payer BC, SELFPAY ==
[2025-05-06 09:08] VITALS: BP 121/85; PULSE 90; RESP 18; TEMP 36.6; O2SAT 99
[2025-05-06 09:22] VITALS: BMI 19.3
[2025-05-06 09:26] VITALS: BP 103/76
--- NOTE | 2025-05-06 09:30 | ED.RN ---
Pt was being asked about home meds and she became very defensive. I explained that I was just asking about her home meds and not judging anything. She said that she feels like she is judged every time she is here and she is in pain and needs help. I explained that we would do that and the dr would be in to see her.
[2025-05-06 10:21] VITALS: BP 119/90; PULSE 111; RESP 18; TEMP 36.7; O2SAT 94
--- NOTE | 2025-05-06 10:24 | EDS_ITS ---
HPI History of Present Illness Chief Complaint: Dental Narrative Narrative: Pt is a 40-year-old female who is presenting to the ER today with chief complaint of right lower dental pain. Patient states that she has had her wisdom teeth pulled, but patient appears to have impacted tooth to the right lower mandibular area. Patient has been having right lower dental pain. Patient says that she called oral surgeons today, and oral surgeons stated that if patient needed referral, they cannot see her today. Patient does not have a current dentist. 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 Patient states that she has perfect teeth so she does not need to see a dentist. However, by looking at the teeth while she is talking, she has noted cavities most likely in enamel irritation to tooth #30, 31. Patient has no facial swelling. Patient states that she thinks that she has tasted foul taste, no facial swelling. No difficulty swallowing. No difficulty breathing. Patient has no fevers. Mild nausea, no vomiting. 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 However, patient states that she will get hydrocodone from her PCP every 4 months for her ongoing chronic pain issues, she cannot use Percocet because that was part of her addiction but she can use hydrocodone and it does not affect her addiction. Patient 2 children at bedside. REVIEW OF SYSTEMS: Unless otherwise stated in this report the patient's positive and negative responses for review of systems for constitutional, eyes, ENT, cardiovascular, respiratory, gastrointestinal, neurological, , musculoskeletal, and integument systems and related systems to the presenting problem are either stated in the history of present illness or were not pertinent or were negative for the symptoms and/or complaints related to the presenting medical problem. Nurse's notes and vital signs reviewed. The patient is not hypoxic. Vital signs reviewed and patient is not hypoxic. Nurses notes reviewed and patient is noted to be non-hypoxic. General: The patient is comfortable, alert and oriented x3, well appearing, non toxic in no apparent distress. Head: Atraumatic and normocephalic. Eyes: Normal conjunctiva ENT: The oropharynx is normal. No pharyngeal erythema, uvular edema, tonsillar exudates, asymmetry or trismus. Uvula is midline. Mouth is normal to inspection With the exception of a pain on percussion of the tooth #30,31 and evidence of dental caries. Patient has evidence of enamel decay to the base of tooth #30, 31, patient was not aware of this. No signs of periapical abscess, no signs of drainage. There is no evidence of facial asymmetry or abscess formation. Floor of the mouth is soft. No tenderness in the submental or submandibular space. No tongue elevation or deviation. The patient has no evidence of periapical abscess, gingivitis, ANUG or other acute pathology. Airway is patent. Neck: The neck demonstrates normal range of motion. No meningeals signs are pre sent. No stridor. No masses or lymphandenopathy noted. Respiratory: No acute distress, lungs are clear to auscultation, no wheezing, rhonchi, or rales noted. No stridor or retractions are noted. Cardiovascular: Regular rate and rhythm Skin: The skin exam shows no evidence of rashes Neuro: Alert and oriented x4, normal speech Lymphatic: No cervical lymphadenopathy PFSH PFSH Medical History Anxiety History of pre-term labor Polyhydramnios Home Medications ?Medication ?Instructions ?Recorded ?Last Taken ?Type diazepam 10 mg tablet 20 mg PO DAILY PRN alcohol 1 07/07/24 Unknown History withdrawal ondansetron 4 mg disintegrating 4 mg PO Q8H PRN PRN Na usea #10 tabs 05/06/25 Unknown Rx tablet penicillin V potassium 500 mg 500 mg PO 3XD #30 tabs 1 07/07/24 Unknown Rx tablet Allergy/AdvReac Type Severity Reaction Status Date / Time acetaminophen (From Allergy Rash Verified 05/06/25 09:10 Tylenol-Codeine) codeine phosphate (From Allergy Rash Verified 05/06/25 09:10 Tylenol-Codeine) fentanyl AdvReac Other Verified 05/06/25 09:10 Surgical History Hx of appendectomy Social History Smoking Status: Former smoker substance use type: does not use EXAM Physical Exam Const Vital Signs: 05/06/25 09:08 05/06/25 09:26 05/06/25 10:21 Temperature 97.9 F 98.1 F Temperature Source Temporal Pulse Rate 90 111 H Respiratory Rate 18 18 Blood Pressure 121/85 H 103/76 119/90 H Blood Pressure Mean 97 85 99 Pulse Ox 99 94 Oxygen Delivery Method Room Air MDM MDM MDM Narrative Medical decision making narrative: Patient was prescribed Pen-Vee K and Zofran prophylactically. Patient stated that she is using [id number] Orajel, also using heat and ice. Patient says that she is using [id number] medication with no relief. Patient asked me 4-5 times for a prescription of hydrocodone. Patient tells me that she has been sober for heroin for 9 years, she cannot have Percocet, but she can have hydrocodone. In looking at patient O[facility], patient was prescribed hydrocodone 2 weeks ago. Patient told me that she was prescribed hydrocodone over 4 months ago. Patient asked me several times, stating that she is coming to the emergency room for treatment of her pain and I am not treating her pain. I educated patient there is no acute fracture, no obvious signs of abscess, there is no acute indication for narcotic treatment at this time. We discussed using Tylenol, anti-inflammatories, Orajel, and ice. Patient asked me 2 more times that she needs something stronger for pain. Patient was told that she can follow-up with dentist, a dental clinic list was provided. Patient was also told she can call her PCP if she thinks she needs something stronger for pain. After this discussion, patient did thanked me for my time, however patient asked multiple times for pain medication and has no acute indication for any narcotics at this time. No questions at discharge. Patient did show seeking behavior, especially when she states that she is clean from opiates and sober for 9 years but she keeps getting prescriptions for hydrocodone. Discharge Plan Triage Chief Complaint: Dental ED Provider: Junaid Roberson Dx/Rx/DC Orders Clinical Impression: Atypical face pain, Pain, dental Instructions: Medicine for Pain, ED Dental Pain, ED Dental Cavity, ED Tooth Abscess Prescriptions: New penicillin V potassium 500 mg tablet 500 mg PO 3XD Qty: 30 0RF ondansetron 4 mg tablet,disintegrating 4 mg PO Q8H PRN PRN (Reason: Nausea) Qty: 10 0RF No Action diazepam 10 mg tablet 20 mg PO DAILY PRN (Reason: alcohol withdrawal) Stand Alone Forms: ED Work / School Excuse Primary Care Provider: Ale Mckeon Referrals: Ale Mckeon, [employer] [Primary Care Provider, Family Practice] Activity Restrictions/Additional Instructions: Use ice, ice, ice, 20 minutes on, 20 minutes off for the next 3 to 5 days and to follow-up with a dentist. Do not use heat. Alternating Tylenol and anti-inflammatories, ice, and [id number] Orajel is recommended to help treat pain. Follow-up with your PCP and also establish a dentist for additional treatment of symptoms and definitive treatment of your teeth. I gave you information on dental abscess for education only, I do not see any dental abscess during her clinical exam. Antibiotics have been prescribed prophylactically. Zofran has been prescribed prophylactically if needed You may alternate Tylenol and either Motrin, Advil, ibuprofen every 4 hours as needed for pain/fever. Take anti-inflammatories with food or drink to help buffer the medication. MAX dose of Tylenol is 3000 mg a day. MAX dose of Motrin, Advil, ibuprofen is 2400 mg a day. Print Language: Qatari Disposition Disposition: Home, Self Care Discharge Date/Time: 05/06/25 10:30
== END 2025-05-06 10:30 | disposition home or self-care (01) ==
PROVIDERS: Emergency Provider Emergency Medicine; PCP Nurse Practitioner Family; Visit Provider Emergency Medicine
DX: K08.89 Other specified disorders of teeth and supporting structures (principal); R51.9 Headache, unspecified; Z87.891 Personal history of nicotine dependence
CPT/HCPCS: 99282